=== PATIENT | male | born 1950 | race Caucasian/White ===

== ENCOUNTER → 2017-07-26 | Outpatient (CLI) | payer OTHER ==
[~2017-07-26] VITALS: Ht 175.3 cm; Wt 77.1 kg
[~2017-07-26] MED LIST: AMARYL4 MG PO; ASPIRIN325 PO; B-100 COMPLEX1 EAC1 PO; BACTRIM DS TAB1 EACH PO; BENADRYL25 MG PO; BYSTOLIC 5 MG5 M1 PO; BYSTOLIC10 MG PO; CATAPRES PO; CATAPRES-TTS 10.1 MG TD; CATAPRES0.2 MG PO; CELEBREX 200 M200 MG OR; CELEBREX 200 M200 MG PO; CLEOCIN HCL300 MG PO; CLONIDINE HCL0.2 M2 OR; CLONIDINE0.1 PO; CLOPIDOGREL75 MG PO; COUMADIN 4 MG TA4 M1; CYCLOBENZAPRINE10 MG PO; DILAUDID 4 MG TA4 M1 PO; EFFIENT10 MG PO; FLEXERIL PO; GLUCOPHAGE XR500 MG PO; GLUCOPHAGE500 MG PO; GLUMETZA500 OR; IBUPROFEN 200200 M1 PO; IRON159 MG PO; KAPVAY0.1 MG PO; KEFLEX500 MG PO; LIPITOR20 MG PO; LYRICA 50 MG50 MG PO; LYRICA 75 MG CA75 MG PO; MELOXICAM7.5 MG PO; MOBIC7.5 MG PO; MS CONTIN15 MG PO; MS CONTIN30 MG PO; MULTIVITAMINS PO; MUPIROCIN22 GM TOP; NEPHROCAPS SOFT1 CAP PO; NEURONTIN 300300 M1 PO; NITROGLYCERIN0.4 MG SUBLING; OXYCODONE HCL20 M1 PO; OXYCONTIN10 M1 PO; OXYCONTIN10 MG PO; OXYCONTIN20 M1 PO; OXYCONTIN30 MG PO; OXYCONTIN40 MG PO; PAIN & FEVER325 MG PO; PERCOCET 10-321 EACH OR; PERCOCET 10-321 EACH PO; PERCOCET 10-651 EACH PO; PERCOCET PO; PLAVIX 75 MG TA75 MG PO; QUINAPRIL 20 MG20 MG PO; SENOKOT-S1 TA1 PO; TOPROL XL50 MG OR
--- NOTE | ~2017-07-26 | HPC ---
[facility] [place] [address] PAIN MANAGEMENT CONSULTATION Name: SHERYL VALLADARES V Room #: REG [facility] Hansel.#: [id number] Admission: 07/26/17 Attend Phys: Chavez Berrios MD Discharge: Date of : 54 Report #: [id number] THIS REPORT FOR: //name// CC: Marcus Berrios DATE OF SERVICE: 07/26/2017 Followup visit for chronic intractable back pain with radiculopathy, history of chronic opioid use, osteoarthritis right hip. This is a followup visit for the patient, who came to my clinic at the request of Dr. Durham for me to assume his high-dose opioid therapy. When he presented to my office, he was receiving 100 mg of oxycodone with a combination of OxyContin 10 mg b.i.d. and oxycodone immediate release 20 mg 4 times daily. We had a lengthy discussion about his medications, the CDC guidelines, his morphine milligram equivalency of 150 mg, and our plan to reduce his dose further over the course of the next few months. He had already made substantial adjustment down from 240 morphine milligram equivalents. He reports today that he is under substantial stress. 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 His pain is 5/10 with the medication and is exacerbated by standing. He climbs ladders at work and he was cautioned. The patient has high blood pressure, heart disease, osteoarthritis and history of frequent headaches. He reports substantial stress, anxiety and depression at times. All medications were reviewed and reconciled today. He is out of medication. I am seeing at [facility] due to an inability to make an appointment at the clinic at [facility] in a timely fashion. PHYSICAL EXAMINATION: His affect is a bit depressed. He is able to move independently from sitting to standing position and walks with a stable gait. He is not a fall risk. His blood pressure is 139/49, his heart rate 57, respirations 14, BMI is 25.1. He has pain across his low back with forward flexion and extension. There is positive straight leg raising bilaterally into both legs involving the L5 and S1 distribution, worse on the left. He has severe right hip pain with hip internal and external rotation. IMPRESSION: 1. Chronic intractable pain related to post-laminectomy syndrome with [facility] [address] [place] [address] PAIN MANAGEMENT CONSULTATION Name: SHERYL VALLADARES V Room #: REG [facility]#: [id number] Admission: 07/26/17 Attend Phys: Chavez Berrios MD Discharge: Date of : 54 Report #: [id number] radiculopathy, the patient has majority of pain bilaterally in the lower extremities. 2. Osteoarthritis, status post left hip replacement and now with severe pain in the right hip with pending THR, which cannot be scheduled due to social issues. 3. History of complex regional pain syndrome. 4. Chronic high-dose opioid use. PLAN: 1. Long discussion again today about opioid use with the CDC guideline. I will provide him with 1 month and I am performing a buccal drug test today under terms of our written agreement. 2. Consider epidural steroid injection under fluoroscopic guidance for radicular pain to help us reduce his opioid dependence. 3. Long discussion today about spinal cord stimulation. He had a trial over 12 years ago. This therapy has changed dramatically and I think he is a good candidate for that with both the diagnosis of post-laminectomy syndrome with radiculopathy as well as complex regional pain syndrome. 4. Follow up in the Pain Clinic for epidural injection in 1 week and I will follow up for medication management either here or [facility] depending on convenience for patient. By: [id number] Chavez Berrios MD /nt
[2017-07-26 08:32] VITALS: BP 139/49
== END ==
LOC: PAIN 05:33
DX: M16.11 Unilateral primary osteoarthritis, right hip (principal); F11.20 Opioid dependence, uncomplicated

== ENCOUNTER → 2017-08-16 | Outpatient (CLI) | payer OTHER ==
[~2017-08-16] VITALS: Ht 175.3 cm; Wt 76.7 kg
[~2017-08-16] MED LIST changes: +EMBEDA ER 80-31 EACH PO; +OXYCODONE-ACET1 EAC2 PO; +XTAMPZA ER27 MG PO
--- NOTE | ~2017-08-16 | HPC ---
[facility] [address] [place] [address] PAIN MANAGEMENT CONSULTATION Name: SHERYL VALLADARES V Room #: REG [facility] Hansel.#: [id number] Admission: 08/16/17 Attend Phys: Chavez Berrios MD Discharge: Date of : 54 Report #: [id number] THIS REPORT FOR: //name// CC: Marcus Berrios DATE OF SERVICE: 08/16/2017 Followup visit for management of high risk medications. The patient returns to pain clinic today for renewal of his oxycodone. He is at very high doses with an MME in the range of 135. This is a reduction from his chronic use. He previously was at 240 MME and has made a good headway in reducing his reliance on such high doses of opioids. Because of his use of oxycodone at such high levels, I have elected to place him on Xtampza, which is abuse deterrence. For all patients above 90 MME, we have taken at our clinic as an important step to prevent any diversion of these higher doses into the community. I have discussed the CDC guidelines and our opioid agreement in detail with the patient today. His PQRS shows he has a history of osteoarthritis with diffuse aches and pains, particularly throughout his right hip. He has low back pain with radiculopathy as well. He is on medication for blood pressures noted provided by his primary care physician. He has completed an opioid risk tool in our clinic and has a functional assessment tool of 33. He is at low risk for addiction and is using his medications appropriately for treatment of chronic intractable pain. PHYSICAL EXAMINATION: His affect is pleasant. Blood pressure 128/55, heart rate 61, respirations 14. He moves from sitting to standing position, walks with a slow antalgic gait. He has tenderness across his low back. He has pain with forward flexion and extension. There is also noted pain with internal and external rotation of the right hip consistent with his osteoarthritis. IMPRESSION: 1. Chronic intractable pain with osteoarthritis, right hip. 2. Lumbar spondylosis with radiculopathy. 3. Management of high risk medication. Medications were renewed as follows, Xtampza 27 mg b.i.d., oxycodone 10/325 one tablet 3 times daily. This will be an opioid equivalent of 135 MME. I plan to [address] [address] PAIN MANAGEMENT CONSULTATION Name: SHERYL VALLADARES V Room #: REG [facility] Bonilla#: [id number] Admission: 08/16/17 Attend Phys: Chavez Berrios MD Discharge: Date of : 54 Report #: [id number] see him back in the clinic in 2 months. Hopefully, the Xtampza will be cost effective for him. By: [id number] Chavez Berrios MD /nt
[2017-08-16 13:31] VITALS: BP 128/55
== END ==
LOC: PAIN 07:12
DX: M16.11 Unilateral primary osteoarthritis, right hip (principal); G89.29 Other chronic pain; M47.26 Other spondylosis with radiculopathy, lumbar region; Z79.899 Other long term (current) drug therapy

== ENCOUNTER → 2017-09-13 | Outpatient (CLI) | payer OTHER ==
[~2017-09-13] VITALS: Ht 175.3 cm; Wt 77.5 kg
[~2017-09-13] MED LIST changes: +BYSTOLIC20 MG PO; +EMBEDA PO; +LYRICA150 MG PO
--- NOTE | ~2017-09-13 | HPC ---
[facility] [address] [place] [address] PAIN MANAGEMENT CONSULTATION Name: SHERYL VALLADARES V Room #: REG ESTELA Crystal#: [id number] Admission: 09/13/17 Attend Phys: Chavez Berrios MD Discharge: Date of : 54 Report #: [id number] THIS REPORT FOR: //name// CC: Olvin Berrios DATE OF SERVICE: 09/13/2017 Followup visit for chronic pain management. The patient is here today in followup and the primary purpose is to prepare him with medication up to his surgery, to discuss a plan for perioperative acute on chronic pain management and also discuss postoperative followup. He is concerned about pain management in the postoperative period. I have told him that my note from today will be on the record at [facility] and can serve as a reference and guide to Dr. Pelaez and the hospitalists will be helping manage his postoperative condition. It is also nice to know that anesthesia techniques have advanced and perioperative pain management is a focus of perioperative anesthesia. We reviewed his three primary pain generators. He has chronic low back pain with spondylosis and radiculopathy. He suffers from severe osteoarthritis of the right hip and has surgery planned for 09/24 to replace that hip. He suffers from diabetic peripheral neuropathy with a burning sensation in both feet and has chronic pain in the left foot and leg following a severe traumatic injury with pinning of the left ankle following which he suffered complex regional pain syndrome, which is smoldered long for many years. He has only recently returned to my practice coming in to me on high dose opioids. His morphine milligram equivalent dose was 240 at one point. We have been able to moderate that dose and he will come to surgery on 100 mg of Embeda, an abuse deterrent once a day morphine along with oxycodone 10-20 mg 3 times daily, not to exceed 60 mg a day of oxycodone for breakthrough. This equates to a morphine milligram equivalency of 190, still extremely high. Our plan is to continue with these doses through surgery to help manage his perioperative pain and then to aggressively taper his medication when surgery is through since one of his primary pain generators should hopefully be better. He is on board with that plan. PQRS is reviewed today. He is not a fall risk. He ____ or will try not to smoke in anticipation of surgery, but has been smoking one-half packs per day. He is treated for hypertension. His BMI is stable at 25.2. PHYSICAL EXAMINATION: [facility] [address] [place] [address] PAIN MANAGEMENT CONSULTATION Name: SHERYL VALLADARES V Room #: REG [facility]#: [id number] Admission: 09/13/17 Attend Phys: Chavez Berrios MD Discharge: Date of : 54 Report #: [id number] GENERAL: He is pleasant, alert and oriented without signs of overmedication, depression or anxiety. HEENT: Shows that he is edentulous. His pupils are small, but reactive. CHEST: Clear. CARDIAC: Rhythm is regular. VITAL SIGNS: His blood pressure 153/53, heart rate 56, respirations 14 and O2 sat 97%. GAIT: He has an antalgic gait. IMPRESSION: 1. Osteoarthritis, right hip with anticipated right THR. 2. Chronic left foot pain with history of CRPS, chronic smoldering neuropathic pain. 3. Diabetic neuropathy. 4. Chronic low back pain with spondylosis and radiculopathy. 5. Management of high risk medication. RECOMMENDATIONS: 1. Continue Xtampza at 100 mg daily through surgery and after. He will take this is as a baseline medication. He is instructed to bring his own medication to the hospital since it is unlikely that they will have it. He is to take one tablet each morning. 2. Continue with breakthrough oxycodone 1-2 tablets up to 3 times a day, not to exceed 60 mg per day or 6 tablets. 3. In the perioperative period, he can be given intravenous morphine 2-4 mg q. 2-3 hours as necessary or he may be a good candidate for a [employer] up to 20 mg in 4 hours with some additional nurse applied boluses 1-2 mg every 2 hours if that is unsatisfactory. 4. Postoperative intravenous supplementary pain medication can be discontinued within 48-72 hours and he can resume his oxycodone and baseline medications for discharge. 5. Perioperative nonopioid co-analgesics including his routine dose of Lyrica 150 mg b.i.d. should be continued through surgery and at discharge. 6. I would like to see him back in the pain clinic in one month. That will be about 2 weeks following his surgery and will make further plans on where to go from there. I have told him that my note just dictated will be on the chart for directions to Dr. Pelaez and although I will be out of town, Rachel Luz APN will be available in the clinic if there are questions. <ELECTRONICALLY SIGNED> By: Chavez Berrios MD 09/17/17 1230 [id number] [id number] Chavez Berrios MD /nt
[2017-09-13 09:41] VITALS: BP 153/53
== END ==
LOC: PAIN 08-30 08:47
DX: M47.26 Other spondylosis with radiculopathy, lumbar region (principal); M16.11 Unilateral primary osteoarthritis, right hip; E11.40 Type 2 diabetes mellitus with diabetic neuropathy, unspecified; G89.29 Other chronic pain; M54.5 Low back pain; M79.672 Pain in left foot; Z79.899 Other long term (current) drug therapy

== ENCOUNTER → 2017-10-11 | Outpatient (CLI) | payer OTHER ==
[~2017-10-11] VITALS: Ht 175.3 cm; Wt 75.8 kg
--- NOTE | ~2017-10-11 | HPC ---
[facility] [place] [address] PAIN MANAGEMENT CONSULTATION Name: SHERYL VALLADARES V Room #: REG ESTELA Hansel.#: [id number] Admission: 10/11/17 Attend Phys: Chavez Berrios MD Discharge: Date of : 54 Report #: [id number] THIS REPORT FOR: //name// CC: RAIZA Berrios DATE OF SERVICE: 10/11/2017 Followup visit for chronic pain. The patient returns to pain clinic now with 3 weeks out from his hip replacement. His hip is feeling better. I had increased his Embeda slightly from 80-100 for the postoperative period and he had some breakthrough Percocet, which he has been taking aggressively up to 2 tablets 3 times a day. He has low pain threat tolerance and some hyperalgesia related to long-term use of opioids. His MME is above 150. I have agreed to provide these medications only as long as we get him through his surgical. I am agreeable to continue them for 1 more month and will begin to taper. We talked about the importance of exercise and recovery and for the best outcome for his hip replacement. He is somewhat limited in his ability to perform therapy because of chronic back pain with radiation into the leg with radiculopathy. He has had 2 previous lumbar surgery with fusion. I have offered an epidural injection for possible pain relief is not able to perform his therapy. I am not going to increase his medication. Comorbidities include coronary artery disease with CABG x 3 in 2012. He had seizures as a child and has non-insulin dependent diabetes. He is treated for high blood pressure and high cholesterol by Dr. Sheryl López. PHYSICAL EXAMINATION: Today appears relaxed and comfortable. His blood pressure 136/42, heart rate 65, BMI is 24.7. His pain score is 6. He moves from sitting to standing position and is using a walker still with his hip replacement, now 3 weeks out. He has mild tenderness across his low back. The hip is in good alignment and there has been no instability. Incision has healed nicely. IMPRESSION: 1. Chronic intractable pain with osteoarthritis of the right hip, now status post total hip replacement. 2. History of chronic regional pain syndrome with smoldering neuropathic pain. 3. Diabetic neuropathy. 4. Post-laminectomy syndrome with chronic spondylosis and radiculopathy, which [address] [address] PAIN MANAGEMENT CONSULTATION Name: SHERYL VALLADARES V [id number] Admission: 10/11/17 Attend Phys: Chavez Berrios MD Discharge: Date of : 54 Report #: [id number] has worsened some during his recovery and limitations in mobility with hip replacement. 5. Management of high risk medications at [facility] doses of greater than 150 MME including Embeda 100 mg once daily and oxycodone mg 10/325 mg 1-2 tablets up to every 4 hours. PLAN: One more month at current dosing of his medication and then will taper. Followup visit planned in 1 month. By: [id number] Chavez Berrios MD /minnie
[2017-10-11 09:54] VITALS: BP 136/42
== END ==
LOC: PAIN 06:15
DX: M16.11 Unilateral primary osteoarthritis, right hip (principal); E11.40 Type 2 diabetes mellitus with diabetic neuropathy, unspecified; G89.4 Chronic pain syndrome; Z79.891 Long term (current) use of opiate analgesic; Z79.899 Other long term (current) drug therapy

== ENCOUNTER → 2017-11-08 | Outpatient (CLI) | payer OTHER ==
[~2017-11-08] VITALS: Ht 175.3 cm; Wt 76.9 kg
--- NOTE | ~2017-11-08 | HPC ---
[facility] [address] [place] [address] PAIN MANAGEMENT CONSULTATION Name: SHERYL VALLADARES V Room #: REG ESTELA Hansel.#: [id number] Admission: 11/08/17 Attend Phys: Chavez Berrios MD Discharge: Date of : 54 Report #: [id number] THIS REPORT FOR: //name// CC: Marcus Berrios DATE OF SERVICE: 11/08/2017 Followup visit for chronic pain management. The patient returns to pain clinic today for renewal of medication. As discussed on 10/11/2017, I will begin tapering his medication. He is concerned that his pain will return with a vengeance and I have reassured him that we will be gradual in our tapering. His morphine milligram equivalency dose is quite high. I feel that we need to reduce this medication while we can. He is doing well with his hip replacement. He has a little concern about some of the scar tissue that is forming, but I have felt this and reassured him that it appears to be normal and should not pose a long-term problem. I talked to him for about 15 minutes additional to our normal visit today for a 25-minute followup visit. He is concerned about his , Yuki. She has a longstanding problem with lymphoma and has recently had a recurrence of issues with cancer. She is following at with Dr. Chavez Ang. She is not on hospice, but clearly I feel she would benefit from the excellent support that could be provided through a palliative care team. has a wonderful palliative care program and I believe that they have some outreach programs into the clinics that are outside of the main hospital. I have placed a text to one of the nurses in the palliative care program at and also to Dr. Ang who was kind enough to call me back. This is care for the patient's not the patient, but it directly impacts his wellness as well. I felt it important that we reached out to provide this palliative care support. We talked about advanced directives and durable power of corporate attorney. These are all issues that can be as discussed with his palliative care team when the consult is initiated. PHYSICAL EXAMINATION: Today, he is 5 feet 9 inches, BMI of 25. His blood pressure 136/56, heart rate 66. Pain intensity is 6. He does not appear to be a fall risk, and moves easily from sitting to standing position. His gait has improved with the new hip. Examination of the scar along his hip reveals a small amount of forming scar tissue, which I think is benign. There is no redness or inflammation suggesting infection. He is not on any blood thinners at this time. He is treated for hypertension. He is on an opioid agreement that has been on our chart and reviewed the importance of safeguarding medication. He is grateful for the pain relief that he gets and has no significant side effects. He is much more functional and able to get around better with pain medication and is concerned that we may pull [address] [address] PAIN MANAGEMENT CONSULTATION Name: SHERYL VALLADARES V Room #: REG ESTELA Crystal#: [id number] Admission: 11/08/17 Attend Phys: Chavez Berrios MD Discharge: Date of : 54 Report #: [id number] this from him. He is at low risk for addiction and we will make sure that we monitor him carefully. IMPRESSION: Chronic intractable pain syndrome with osteoarthritis, status post hip replacement, chronic regional pain syndrome and smoldering neuropathic pain, diabetic neuropathy and post-laminectomy syndrome with radiculopathy. Medications renewed and I have kept his Embeda at 100 mg daily and dropped his oxycodone from 6 to 5 tablets per . I will see him back in 1 month or 2 months. In 4 weeks, I have given him an additional prescription for oxycodone; however, we will not continue at 5 a day, we will drop to 4. This should drop his oxycodone then over next 2 months from 60 to 40 mg. We will continue these efforts. By: [id number] Chavez Berrios MD /nt
[2017-11-08 10:09] VITALS: BP 136/56
== END ==
LOC: PAIN 07:26
DX: M16.12 Unilateral primary osteoarthritis, left hip (principal); E11.40 Type 2 diabetes mellitus with diabetic neuropathy, unspecified; M54.16 Radiculopathy, lumbar region; G89.4 Chronic pain syndrome; Z79.899 Other long term (current) drug therapy

== ENCOUNTER → 2018-01-03 | Outpatient (CLI) | payer OTHER ==
[~2018-01-03] VITALS: Ht 175.3 cm; Wt 75.4 kg
--- NOTE | ~2018-01-03 | HPC ---
[facility] [place] [address] PAIN MANAGEMENT CONSULTATION Name: SHERYL VALLADARES Room #: REG [facility].#: [id number] Admission: 01/03/18 Attend Phys: Chavez Berrios MD Discharge: Date of : 54 Report #: [id number] THIS REPORT FOR: //name// CC: CARY Berrios DATE OF SERVICE: 01/03/2018 REASON FOR VISIT: Followup visit for chronic pain. HISTORY OF PRESENT ILLNESS: The patient returns to pain clinic today for renewal of his pain medication. Under terms of our written opioid agreement, I provided him with Embeda ER, the abuse deterrent morphine at 100 mg once daily and oxycodone 10/325 four daily for breakthrough pain. He is doing reasonably well with these medications. 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 She fell the other day, pulling down a dresser on top of her and he had to pull that off of her. This aggravated his back and also his hip. It should be noted that his hip was replaced on 09/24/2017. He is doing better from that standpoint. Much of his pain prior to the replacement was in his hip. He has made it through recovery and is doing rehab and is gaining strength throughout the leg. PHYSICAL EXAMINATION/PQRS: Blood pressure is 131/39, heart rate 63, respirations 20. His BMI is 24.9. He is pleasant, alert and oriented with no signs of dementia or anxiety. He was pleasant and seemed to be managing difficult task of caring for his with dafne. He is able to move from sitting to standing position. His gait is mildly antalgic mostly due to the healing of his hip. He has mild tenderness there. Chest was clear and his cardiac rhythm was regular. He has diffuse osteoarthritis in the shoulders. Hips as noted. He is not a fall risk as appears, he is no longer using his cane. He has no blood thinners, but history of hypertension and coronary artery disease for which he is under treatment. He is on an opioid agreement signed by out clinic and resigned in August of this year. He has completed an opioid risk tool. He denies use of tobacco, drinks alcohol only during the [employer] games. IMPRESSION: 1. Chronic intractable back pain and cervicalgia. 2. Osteoarthritis, status post hip replacement. 3. Complex regional pain syndrome and neuropathic pains with diabetic [facility] [address] [place] [address] PAIN MANAGEMENT CONSULTATION Name: SHERYL VALLADARES Room #: REG [facility] HanselErin#: [id number] Admission: 01/03/18 Attend Phys: Chavez Berrios MD Discharge: Date of : 54 Report #: [id number] neuropathy and post-laminectomy syndrome with radiculopathy. PLAN: I have renewed his medications in terms of our agreement and plan to see him back in the pain clinic at 3-month intervals. He will safeguard his medications carefully. <ELECTRONICALLY SIGNED> By: Chavez Berrios MD 01/04/18 1312 [id number] Chavez Berrios MD /nt
[2018-01-03 10:09] VITALS: BP 141/39
== END ==
LOC: PAIN 07:08
DX: M54.16 Radiculopathy, lumbar region (principal); M54.2 Cervicalgia; G89.4 Chronic pain syndrome; M19.90 Unspecified osteoarthritis, unspecified site; M96.1 Postlaminectomy syndrome, not elsewhere classified; E11.40 Type 2 diabetes mellitus with diabetic neuropathy, unspecified; Z96.641 Presence of right artificial hip joint; Z79.899 Other long term (current) drug therapy

== ENCOUNTER → 2018-03-06 | Outpatient (CLI) | payer OTHER ==
[~2018-03-06] VITALS: Ht 175.3 cm; Wt 73.8 kg
--- NOTE | ~2018-03-06 | HPC ---
[facility] [place] [address] PAIN MANAGEMENT CONSULTATION Name: SHERYL VALLADARES Room #: [facility] [id number] Admission: 03/06/18 Attend Phys: Jayne Roman MD Discharge: Date of : 54 Report #: [id number] THIS REPORT FOR: //name// CC: Sheryl Roman DATE OF SERVICE: 03/06/2018 CHIEF COMPLAINT: Would like to have the medications renewed. My is not doing very well. FOLLOWUP HISTORY: The patient is a 68-year-old gentleman, who has been followed in the pain clinic because of chronic pain involving his back and neck. He finds that his current medication regimen is pretty good. He feels that the Percocet and morphine are helpful. As you may recall, his is in hospice. She has a history of breast cancer, stage 4 as well as other problems. He states that she is in hospice at this juncture. He is experiencing pain in his lower back with pain that radiates down into his feet. CURRENT MEDICATIONS: The patient is on hydrocodone 10/325 one p.o. q.4-6 hours p.r.n., morphine 100 mg, Embeda, aspirin 325 mg, Lyrica 150 mg b.i.d., Bystolic 20 mg, nitroglycerin 0.4 mg p.r.n., metformin 500 mg b.i.d., Lipitor 20 mg at bedtime, Amaryl 2 mg daily, and Accupril 20 mg. ALLERGIES: THE PATIENT IS ALLERGIC TO DILAUDID AND PREDNISONE. PAIN CLINIC ASSESSMENT AND PQRS: 1. Osteoarthritis. The patient has bilateral shoulder and hip pain, has had hip replacement. The patient has not been treated for rheumatoid arthritis. 2. Pain intensity is 3/10. 3. Fall risk. The patient has not fallen in the last 3 months. 4. Blood thinner. The patient is not on a blood thinning medication. 5. Hypertension. The patient is being treated for hypertension. 6. Opioid. The patient receives his medications from the pain clinic on a regular basis. 7. Risk assessment tool, low for opioid use. 8. Functional assessment tool, . 9. Recreational drug use. The patient denies use of recreational drugs. 10. Tobacco: The patient smokes on occasion. We discussed the benefits of smoking cessation with the patient. 11. Alcohol: The patient denies use of alcoholic beverages. PHYSICAL EXAMINATION: GENERAL: The patient is a well-developed, well-nourished white male. He appears his stated age. He is alert and oriented x 3. His affect is [facility] [address] [place] [address] PAIN MANAGEMENT CONSULTATION Name: SHERYL VALLADARES Room #: REG ESTELA Crystal#: [id number] Admission: 03/06/18 Attend Phys: Jayne Roman MD Discharge: Date of : 54 Report #: [id number]. Speech is fluent. Height is 5 feet 9 inches, weight is 162 pounds, and BMI is 24. VITAL SIGNS: Blood pressure is 144/58, pulse is 60, respiratory rate is 18, and room air saturation is 95%. HEENT: Normocephalic, atraumatic. Extraocular eye muscles intact. Sclerae nonicteric. Mucous membranes are moist. NECK: Without adenopathy or JVD. LUNGS: Clear to auscultation. HEART: Regular rate. ABDOMEN: Nontender. EXTREMITIES: Upper extremity muscle strength is judged to be 5/5 for the major muscle groups in the upper extremity. The patient is without significant scoliosis, kyphosis, or lordosis. He has complained of pain and discomfort in the lower portion of his back with pain that radiates down into his legs. Also, has pain in his hip. RECOMMENDATIONS: We have discussed treatment options with the patient. We will continue with his current medications. Risks and benefits of opioid medications were again described. Possibility of dependence as well as lack of improvement secondary to tolerance were discussed. The patient feels that his medications are working reasonably well. We would like to continue with their use and they have been renewed. He has been given a script for Percocet 10/325, 120 tablets, Embeda ____ has been given a 2-month supply. We would like to thank you for letting us to participate in his care. We hope he continues to improve. By: [id number] Jayne Roman MD /[facility]
[2018-03-06 14:10] VITALS: BP 144/58
== END ==
LOC: PAIN 10:57
DX: M19.90 Unspecified osteoarthritis, unspecified site (principal); I10 Essential (primary) hypertension; F11.21 Opioid dependence, in remission; F17.200 Nicotine dependence, unspecified, uncomplicated; F19.90 Other psychoactive substance use, unspecified, uncomplicated; Z79.899 Other long term (current) drug therapy; Z91.81 History of falling

== ENCOUNTER → 2018-04-30 | Outpatient (CLI) | payer OTHER ==
[~2018-04-30] VITALS: Ht 175.3 cm; Wt 75.1 kg
[2018-04-30 09:34] VITALS: BP 143/66
--- NOTE | 2018-04-30 09:56 | NUR ---
Pain Clinic Assessment: 1. History of Osteoarthritis: CIRILO SHOULDERS CIRILO HIPS History of Rheumatoid Arthritis: none 2. Height: 5 ft. 9 in. 175.3 cm. Weight: 165.6 lb. oz. 75.116 kg. Patient's BMI: 24.4 3. Vital Signs: BP: 143/66 Pulse: 60 Resp: 16 Temp: 02 Sat: 98 ECG Mon: 4. Pain Intensity: 3 5. Fall Risk: Dizziness: N Needs help standing or walking: N Fallen in the last 3 months: N Fall risk comments: 6. Patient on Blood Thinner: None 7. History of Hypertension: Y 8. Opioid Therapy greater than 6 weeks: Y Opiate Contract Signed: 09/13/17 9. Risk Assessment Tool Provided: Opioid Risk Tool 10. Functional Assessment Tool: 43 11. Recreational Drug Use: Never Drug Type: Tobacco Use: Current Every Day Smoker Tobacco Type: Cigarettes Amount or Packs/day: 0.5 How Many Years: 50 Alcohol Use: No Frequency: Quant:
--- NOTE | 2018-05-01 07:37 | HPC ---
[facility] [address] [place] [address] PAIN MANAGEMENT CONSULTATION Name: SHERYL VALLADARES Room #: REG CL MTatiana.#: [id number] Admission: 04/30/18 Attend Phys: Chelsie Luz Discharge: Date of : 54 Report #: [id number] THIS REPORT FOR: //name// CC: Chelsie Proctor [place] DATE OF SERVICE: 04/30/2018 CHIEF COMPLAINT: Chronic low back pain and hip pain, status post hip replacement. HISTORY OF PRESENT ILLNESS: This is a very pleasant 68-year-old gentleman who returned to the pain clinic today for a refill of his current medication. He tells me that they are helping him with his daily life. He tells me that his is in hospice, but she is at home right now, so he is caring for her. Pain in his lower back and his feet, hips are doing better since his hip replacement. He tells me his pain score is 3/10 today, worse with moving his and walking. Medications and heat are very helpful. He denies any constipation. He did need to take more of his short-acting pain pills, his oxycodone, why we are authorizing his Embeda. Therefore, he is out of his oxycodone earlier since it took a week and half to get his Embeda approved in March. CURRENT ALLERGIES: PREDNISONE AND HYDROMORPHONE. CURRENT MEDICATIONS: Oxycodone 10/325 every 6 hours p.r.n. Embeda ER 10/4 daily, aspirin 325 mg daily, Lyrica 150 mg b.i.d., Bystolic 20 mg daily, nitro as needed, Glucophage 500 mg b.i.d., atorvastatin 20 mg at bedtime, Amaryl 4 mg daily. Accupril 20 mg at bedtime. PQRS: 1. He has osteoarthritis in his shoulders and hips, which have been replaced. He is not being treated for rheumatoid arthritis. 2. Height 5 feet 9 inches, weight is 165, BMI is 24. 3. Vital signs: Blood pressure 143/66, pulse is 60, respirations 16, oxygen sat is 98%. 4. Pain score 3/10. 5. Fall risk. Denies dizziness, does not need help walking or standing. Has not fallen in the last 3 months. 6. The patient does not take any blood thinners. 7. He has a history of hypertension, on medications. 8. Opiate therapy is greater than 6 weeks, therefore, an opioid signed contact is on the chart. 9. Risk assessment tool is low. His functional assessment is 43/70. 10. Recreational drug use, he denies. He is a current smoker, about a half a pack a day. Denies any alcohol use. We did check the prescription monitoring system. The patient is filling appropriately from our physicians for his [address] [address] PAIN MANAGEMENT CONSULTATION Name: SHERYL VALLADARES [id number] Admission: 04/30/18 Attend Phys: Chelsie Luz Discharge: Date of : 54 Report #: [id number]. He does have a recent drug screen on his chart that is appropriate with his medications. PHYSICAL EXAMINATION: GENERAL: This is a very pleasant, well-developed, well-nourished white male, who appears his stated age. He is alert and orientated, and his affect is appropriate. HEENT: Normocephalic, atraumatic. Extraocular eye muscles are intact. Sclerae non-eccentric. Mucous membranes are moist. EXTREMITIES: Upper extremity strength judged to be 5/5 for major muscle groups in his upper extremities. The patient was without scoliosis, kyphosis or lordosis. He does walk with a slightly antalgic gait. He complains of pain in his lower back that radiates into his legs. Lower extremity muscle strength is judged to be 5/5 for major muscle groups. We reviewed the fact that opiate medications are being used to provide analgesia adequate to support activities of daily living, not attempting to achieve a specific pain score on the 0-10 Visual Analog Scale. The current opiate medications are providing sufficient analgesia to allow the patient to participate in activities of daily living. The patient is not exhibiting any aberrant behavior suggestive of drug diversion. The patient is not having any adverse reactions to medications. The patient is not suffering from daytime somnolence or mental acuity changes. The patient is managing opiate-induced constipation with appropriate [id number]-[id number] agents and dietary considerations. The patient was counseled on concern for caution with operating a motor vehicle while using opiate medications. A physical exam was performed and the patient's functional status was evaluated. All patients with back pain were advised against the bed rest greater than 4 days and were advised to return to normal activities. Pain score assessment was noted and the treatment plan was reviewed with the patient. All current medications, both prescribed and OTC were reviewed and reconciled on the electronic medical record. Tobacco screening was accomplished and smoking cessation was advised when indicated. BMI was noted and diet/exercise modification was recommended for all patients following outside normal parameters. I reviewed with the patient today their responsibilities to safeguard prescription medications, reviewed their responsibility to utilize medications only as prescribed by the physician. They are to seek and receive pain medications only from 1 physician group ( [facility]). They are to use 1 pharmacy and keep the clinic informed if they change pharmacies. Their responsibilities include making followup visits in a timely fashion and to avoid abrupt discontinuation of medication usage. Their responsibilities further include bringing their medications (bottles from the pharmacy with residual pills) to the visit for possible confirmation of pill counts and the patient [facility] [address] [place] [address] PAIN MANAGEMENT CONSULTATION Name: SHERYL VALLADARES Room #: REG [facility]UM[facility]atiana.#: [id number] Admission: 04/30/18 Attend Phys: Chelsie Luz Discharge: Date of : 54 Report #: [id number] understands it is their responsibility to submit to random drug screens to ensure both that the medications prescribed are present, and that no other controlled substances are present. All prescriptions provided today were generated electronically. RECOMMENDATIONS: 1. We discussed treatment options with the patient today. We will continue his current medications. He was encouraged to try to decrease his oxycodone use since currently they are out of sync with his Embeda. His Embeda was improved for 6 months. The patient did have to pay out of pocket $800 for that medication per the insurance company [employer]. She told me verbally on the phone that she would call Lyndsey that they should be able to reinstate that money to the patient since the medication was approved. I notified the patient to talk to Lyndsey Bradford about this when he goes to fill his medications. 2. We did discuss the patient's current MME, which is 160 currently. We did discuss the CDC requirements of 90 or below. The patient knows he is above that. We discussed that we will try to decrease his Embeda use within the next few months since the patient has been recovering from his hip surgery and is doing better. He will try to decrease his short-acting medications. 3. Scripts given for Embeda 100/4 #30 to be released today and 4-week and Percocet 10/325, #120, to release today and 4 weeks. 4. The patient is seen in collaboration today with Dr. Chavez Berrios. <ELECTRONICALLY SIGNED> By: Chelsie Luz 05/01/18 0737 [id number] Chelsie Luz /nt
== END ==
LOC: PAIN 06:45
DX: M54.5 Low back pain (principal); G89.29 Other chronic pain; M25.551 Pain in right hip; M25.552 Pain in left hip; Z79.899 Other long term (current) drug therapy

== ENCOUNTER → 2018-06-27 | Outpatient (CLI) | payer OTHER ==
[~2018-06-27] VITALS: Ht 175.3 cm; Wt 76.7 kg
[2018-06-27 12:21] VITALS: BP 127/58
--- NOTE | 2018-06-27 12:27 | NUR ---
Pain Clinic Assessment: 1. History of Osteoarthritis: CIRILO SHOULDERS CIRILO HIPS History of Rheumatoid Arthritis: none 2. Height: 5 ft. 9 in. 175.3 cm. Weight: 169.0 lb. oz. 76.658 kg. Patient's BMI: 24.9 3. Vital Signs: BP: 127/58 Pulse: 61 Resp: 16 Temp: 02 Sat: 98 ECG Mon: 4. Pain Intensity: 6 5. Fall Risk: Dizziness: N Needs help standing or walking: N Fallen in the last 3 months: N Fall risk comments: 6. Patient on Blood Thinner: None 7. History of Hypertension: Y 8. Opioid Therapy greater than 6 weeks: Y Opiate Contract Signed: 09/13/17 9. Risk Assessment Tool Provided: Opioid Risk Tool 10. Functional Assessment Tool: 43 11. Recreational Drug Use: Never Drug Type: Tobacco Use: Current Every Day Smoker Tobacco Type: Cigarettes Amount or Packs/day: 0.5 How Many Years: 50 Alcohol Use: No Frequency: Quant:
--- NOTE | 2018-06-28 07:13 | HPC ---
[facility] [place] [address] PAIN MANAGEMENT CONSULTATION Name: SHERYL VALLADARES Room #: REG [facility]PITALDulce#: [id number] Admission: 06/27/18 ������������������ Attend Phys: Chelsie Luz Discharge: ������������������ Date of : 54 Report #: [id number] THIS REPORT FOR: //name// CC: Chelsie Proctor [place] DATE OF SERVICE: 06/27/2018 CHIEF COMPLAINT: Low back pain, bilateral foot pain. HISTORY OF PRESENT ILLNESS: This is a very pleasant 68-year-old gentleman who returns to the pain clinic today for refill of his medication. He had his hip replaced in September and tells me that his hip is doing great. He feels much better since he has had that done. He just complains of lower back pain and bilateral foot pain. He said he has some tingling in his left ankle, which is where he broke it in the past. He rates his pain score today is 6/10, mostly an achy, stabbing, tender pain, worse with activity, but the medications and heat are very helpful. He is caring for at home that is on hospice care. He tells me that she has been able to stay out of the hospital for a while and that lately she has been slightly improved. He would like a refill of his medications today. ALLERGIES: PREDNISONE, HYDROMORPHONE. CURRENT MEDICATION LIST: Oxycodone 10/325 up to 4 times a day, Embeda 100/4 daily, aspirin 325 mg daily, Lyrica 150 mg b.i.d., Bystolic 20 mg daily, metformin 500 mg b.i.d., Lipitor 20 mg at bedtime, Amaryl 2 mg daily and Accupril 20 mg at bedtime. PQRS: 1. He has osteoarthritis in his shoulders and his hips, which of the hips have been both replaced. He denies any rheumatoid arthritis. 2. Height is 5 feet 9 inches, weight is 169, BMI is 24.9. 3. Vital signs: 127/58, pulse is 61, respirations 16, oxygen sat is 98. 4. Pain score is 6/10. 5. Fall risk. Denies dizziness. Does not need help walking or standing. He has not fallen in the last 3 months. 6. The patient is not on any blood thinners. He does take medicines for hypertension. 7. Opioid therapy is greater than 6 weeks; therefore, an opiate signed contract is on the chart. His risk assessment tool is low and his functional assessment is 43/70. 8. The patient does not use recreational drugs. He tells me he has decreased his smoking, is down to half a pack a day. 9. Denies any alcohol use. 10. We did check the prescription monitoring system. The patient is filling [address] [address] PAIN MANAGEMENT CONSULTATION Name: SHERYL VALALDARES Room #: REG [facility]#: [id number] Admission: 06/27/18 ������������������ Attend Phys: Chelsie Luz Discharge: ������������������ Date of : 54 Report #: [id number] appropriately with his medications. He is due for his oxycodone script today. He still has about a week's left of his Embeda. We have a drug screen on the chart that is appropriate for his medications. The patient tells me he does safeguard his medicine at all time. PHYSICAL EXAMINATION: GENERAL: This is a very pleasant, well-developed, well-nourished white gentleman, who appears his stated age. He is alert and orientated. He does smell like cigarette smoke today. HEENT: Normocephalic, atraumatic. Extraocular eye muscles are intact. Mucous membranes are moist. EXTREMITIES: Upper extremity strength judged to be 5/5 in major muscle groups. The patient is without scoliosis, kyphosis or lordosis. He does walk with an antalgic gait. Complains of pain in his left ankle and his lower back today. His lower extremity strength judged to be 5/5 for major muscle groups. We reviewed the fact that opiate medications are being used to provide analgesia adequate to support activities of daily living, not attempting to achieve a specific pain score on the 0-10 Visual Analog Scale. The current opiate medications are providing sufficient analgesia to allow the patient to participate in activities of daily living. The patient is not exhibiting any aberrant behavior suggestive of drug diversion. The patient is not having any adverse reactions to medications. The patient is not suffering from daytime somnolence or mental acuity changes. The patient is managing opiate-induced constipation with appropriate cqtu-tor-behizkh agents and dietary considerations. The patient was counseled on concern for caution with operating a motor vehicle while using opiate medications. A physical exam was performed and the patient's functional status was evaluated. All patients with back pain were advised against the bed rest greater than 4 days and were advised to return to normal activities. Pain score assessment was noted and the treatment plan was reviewed with the patient. All current medications, both prescribed and OTC were reviewed and reconciled on the electronic medical record. Tobacco screening was accomplished and smoking cessation was advised when indicated. BMI was noted and diet/exercise modification was recommended for all patients following outside normal parameters. I reviewed with the patient today their responsibilities to safeguard prescription medications, reviewed their responsibility to utilize medications only as prescribed by the physician. They are to seek and receive pain medications only from 1 physician group ( [facility]). They are to use 1 pharmacy and keep the clinic informed if they change pharmacies. Their responsibilities include making followup visits in a timely fashion and to avoid abrupt discontinuation of medication usage. Their responsibilities further include bringing their medications (bottles from the pharmacy with residual [facility] [address] [place] [address] PAIN MANAGEMENT CONSULTATION Name: BLAINESHERYL ASHERNON Room #: REG CLFlores Crystal#: [id number] Admission: 06/27/18 ������������������ Attend Phys: Chelsie Luz Discharge: ������������������ Date of : 54 Report #: [id number] pills) to the visit for possible confirmation of pill counts and the patient understands it is their responsibility to submit to random drug screens to ensure both that the medications prescribed are present, and that no other controlled substances are present. All prescriptions provided today were generated electronically. IMPRESSION: 1. Chronic intractable back pain, osteoarthritis, status post hip replacements. 2. Complex regional pain syndrome. 3. Neuropathic pain with diabetic neuropathy and post-laminectomy syndrome. 4. Lumbar radiculopathy. 5. Management of high-risk medications under terms of written opioid agreement. PLAN: 1. We discussed treatment options with the patient today. He tells me he is doing quite well from his hip replacement. We had kept him at the higher dose of his Embeda of 100/4 mg per day until he was fully recovered from his hip surgery and we told him we would be decreasing him today. We will decrease his Embeda to 80/3.2 mg per day. The patient verbalizes understanding. I explained to him that we will keep his Percocet dose at 10/325 four times a day. According to the CDC guidelines, this still places him on a very high level. His MME at this current calculation would be 140. We will continue to monitor him very closely and we will decrease his medicines again when we are able after we feel that he has been stabilized for several months and is able to decrease his medications again. 2. Scripts given for today and 4-week of his Embeda 80/3.2 and Percocet 10/325, #120. The patient does not need his Lyrica prescription today since he has refills through August. The patient verbalizes understanding of this medication decrease. 3. We did talk about smoking cessation and continue to work on decreasing his cigarette smoking as he is able and reminded him that he is not to smoke in the house where his is on oxygen. He verbalizes understanding. He knows he has come a long way since his 2 packs per day to down to half a pack and he will continue to try and decrease his smoking. 4. The patient is seen with Dr. Berrios who collaborated care and will follow up with us in 2 months. ��������������������������������������������� <ELECTRONICALLY SIGNED> ���������������������������������������� By: Chelsie Luz ��������������������������������������������� 06/28/18 0713 1305 [id number] Chelsie Luz /nt
== END ==
LOC: PAIN 06:58
DX: M54.16 Radiculopathy, lumbar region (principal); G90.50 Complex regional pain syndrome I, unspecified; M96.1 Postlaminectomy syndrome, not elsewhere classified; E11.40 Type 2 diabetes mellitus with diabetic neuropathy, unspecified; M79.671 Pain in right foot; M79.672 Pain in left foot; Z79.891 Long term (current) use of opiate analgesic; Z79.899 Other long term (current) drug therapy

== ENCOUNTER → 2018-08-22 | Outpatient (CLI) | payer OTHER ==
[~2018-08-22] VITALS: Ht 175.3 cm; Wt 77.8 kg
[2018-08-22 12:52] VITALS: BP 149/68
--- NOTE | 2018-08-22 13:07 | NUR ---
Pain Clinic Assessment: 1. History of Osteoarthritis: CIRILO SHOULDERS CIRILO HIPS History of Rheumatoid Arthritis: Not Applicable 2. Height: 5 ft. 9 in. 175.3 cm. Weight: 171.6 lb. oz. 77.837 kg. Patient's BMI: 25.3 3. Vital Signs: BP: 149/68 Pulse: 60 Resp: 16 Temp: 02 Sat: 100 ECG Mon: 4. Pain Intensity: 6-7 5. Fall Risk: Dizziness: N Needs help standing or walking: N Fallen in the last 3 months: N Fall risk comments: 6. Patient on Blood Thinner: None 7. History of Hypertension: Y 8. Opioid Therapy greater than 6 weeks: Y Opiate Contract Signed: 09/13/17 9. Risk Assessment Tool Provided: Opioid Risk Tool 10. Functional Assessment Tool: 43 11. Recreational Drug Use: Never Drug Type: Tobacco Use: Current Every Day Smoker Tobacco Type: Cigarettes Amount or Packs/day: 8-10 CIGS How Many Years: Alcohol Use: No Frequency: Quant:
--- NOTE | 2018-08-26 07:15 | HPC ---
[facility] [address] [place] [address] PAIN MANAGEMENT CONSULTATION Name: BLAINESHERYL LUTZ Room #: REG [facility] Bonilla#: [id number] Admission: 08/22/18 ������������������ Attend Phys: Chelsie Luz Discharge: ������������������ Date of : 54 Report #: [id number] THIS REPORT FOR: //name// CC: Chelsie [place] DATE OF SERVICE: 08/22/2018 CHIEF COMPLAINT: Low back pain, bilateral foot pain. HISTORY OF PRESENT ILLNESS: This is a very pleasant 68-year-old gentleman who returns to the pain clinic today for a refill of his medications. He tells me overall he feels like he is doing adequate. He feels like he had experienced some withdrawal symptoms in June when we decreased his Embeda from 100 mg to 80 mg. He felt like creepy crawly feelings on his back. This has slowly gone away. He did continue his oxycodone at the same strength that he had been on for quite some time throughout this time period. The patient tells me that his pain score is a 6-7. He feels like he is having increased burning and itching in his lower extremities and his feet from his peripheral neuropathy or diabetic neuropathy that he experiences. Overall, he feels that his back pain stays the same. His pain is usually exacerbated with standing for a long time and caring for his who is on hospice. He tells me that he has no problems with the constipation or daytime sleepiness from these medications that he is on. He is wondering today if he is able to go back up on his medications for his higher level of opioids. ALLERGIES: PREDNISONE AND HYDROMORPHONE. CURRENT MEDICATIONS: Oxycodone 10/325 q.i.d. p.r.n., Embeda 8/3.2 daily, aspirin 325 mg daily, Lyrica 150 mg b.i.d., Bystolic 20 mg daily, metformin 500 mg b.i.d., atorvastatin 20 mg at bedtime, Amaryl 4 mg daily and Accupril 20 mg at bedtime. PQRS: 1. He has history of osteoarthritis in his hips and shoulders with hip replacement. Denies any rheumatoid arthritis. 2. Height is 5 feet 9 inches, weight is 171 and BMI is 25. 3. Vital signs, 149/68, pulse is 60, respirations 16 and oxygen sat is 100. 4. Pain score is 6-7. 5. Fall risk, denies dizziness, does not need help walking or standing. He has not fallen in the last 3 months. The patient is not on any blood thinners and he does take medicine for hypertension. 6. Opioid therapy is greater than 6 weeks; therefore, an opioid signed contract is on the chart. His risk assessment tool is low. His functional assessment is 43/70. 7. Recreational drug use, he denies. He continues to smoke 8-[address] cigarettes [address] [address] PAIN MANAGEMENT CONSULTATION Name: SHERYL VALLADARES Room #: REG [facility]ELA Crystal#: [id number] Admission: 08/22/18 ������������������ Attend Phys: Chelsie Luz Discharge: ������������������ Date of : 54 Report #: [id number] day and does not drink alcohol. We did check the prescription monitoring system. The patient is filling appropriately from Dr. Chavez Berrios and is due soon for his medications. There is a recent drug screen on the chart as well. He tells me he does safeguard his medications. PHYSICAL EXAMINATION: GENERAL: This is a very pleasant, well-developed, well-nourished gentleman, who appears his stated age, placing his current pain score today at 6-7. He is alert and orientated. HEENT: Normocephalic, atraumatic. Extraocular eye muscles are intact. Mucous membranes are moist. MUSCULOSKELETAL: Upper extremity strength judged to be 5/5 in all major muscle groups. The patient is without significant scoliosis, kyphosis or lordosis. He does walk with a slightly antalgic gait. He complains of itching and burning from his knees to his feet when increasing of his neuropathy. No swelling noted in his lower extremities. There are scratches with open lesions on his left deluna. His lower extremity strength judged to be 5/5 for his major muscle groups. Muscle tone is symmetrical. We reviewed the fact that opiate medications are being used to provide analgesia adequate to support activities of daily living, not attempting to achieve a specific pain score on the 0-10 Visual Analog Scale. The current opiate medications are providing sufficient analgesia to allow the patient to participate in activities of daily living. The patient is not exhibiting any aberrant behavior suggestive of drug diversion. The patient is not having any adverse reactions to medications. The patient is not suffering from daytime somnolence or mental acuity changes. The patient is managing opiate-induced constipation with appropriate biwj-yao-zjwfdni agents and dietary considerations. The patient was counseled on concern for caution with operating a motor vehicle while using opiate medications. A physical exam was performed and the patient's functional status was evaluated. All patients with back pain were advised against the bed rest greater than 4 days and were advised to return to normal activities. Pain score assessment was noted and the treatment plan was reviewed with the patient. All current medications, both prescribed and OTC were reviewed and reconciled on the electronic medical record. Tobacco screening was accomplished and smoking cessation was advised when indicated. BMI was noted and diet/exercise modification was recommended for all patients following outside normal parameters. I reviewed with the patient today their responsibilities to safeguard prescription medications, reviewed their responsibility to utilize medications only as prescribed by the physician. They are to seek and receive pain [facility] [address] [place] [address] PAIN MANAGEMENT CONSULTATION Name: SHERYL VALLADARES Room #: REG [facility] Hansel.#: [id number] Admission: 08/22/18 ������������������ Attend Phys: Chelsie Luz Discharge: ������������������ Date of : 54 Report #: [id number] medications only from 1 physician group ( [facility]). They are to use 1 pharmacy and keep the clinic informed if they change pharmacies. Their responsibilities include making followup visits in a timely fashion and to avoid abrupt discontinuation of medication usage. Their responsibilities further include bringing their medications (bottles from the pharmacy with residual pills) to the visit for possible confirmation of pill counts and the patient understands it is their responsibility to submit to random drug screens to ensure both that the medications prescribed are present, and that no other controlled substances are present. All prescriptions provided today were generated electronically. IMPRESSION: 1. Chronic intractable back pain. 2. Osteoarthritis, status post hip replacements. 3. Neuropathic pain with a diabetic neuropathy and post-laminectomy syndrome. 4. Lumbar radiculopathy. 5. Management of high-risk medications under terms of written opioid agreement. PLAN: 1. We discussed the treatment options with the patient today. The patient felt that he had had some withdrawal symptoms when he decreased his Embeda from 100/4 to 80/3.2. I explained to the patient that it may take in a while for his body to adjust to this lower dose, he would not go through full withdrawal why he is still taking narcotics and he did also have his hydrocodone. The patient feels that those symptoms have subsided some since that was 2 months ago. He is wondering about going back to his previous dose because he feels that he felt less of those symptoms while he was at the higher dose. I explained to him that since he had his hip replacement, we are trying to decrease his narcotics and we will continue him at 8/3.2 of the Embeda once a day. Our plan is not to decrease him in the near future, let his body adjusts to this new level of medications. Prescriptions given today for that as well as for a 4-week release. 2. Prescription given for oxycodone 10/325, #120 for today and 4-week release. This is no change of his previous dose. 3. The patient tells me that he is having feelings of more itchy and burning in his lower extremities and his feet. I discussed with him his diabetic neuropathy and his blood sugars. The patient has no idea what his daily blood sugars are or what his A1c is. I encouraged him to find that out with his primary care doctor, but the patient has been on Lyrica to help with some of his diabetic neuropathy as well as his lumbar radiculopathy. I think it is reasonable to try and increase his Lyrica slightly to see if this helps relieve some of these symptoms. He is currently on Lyrica 150 b.i.d. We will have him increase this dose slowly, starting with 75 during the middle of the day for 3-5 days to make sure he has no problems with side effects and then increase so he has a total dose of 150 three times a day. Samples given to adjust this dose and we will call in prescriptions for him when he is at a current level that is [facility] [address] [place] [address] PAIN MANAGEMENT CONSULTATION Name: SHERYL VALLADARES Room #: REG [facility] Crystal#: [id number] Admission: 08/22/18 ������������������ Attend Phys: Chelsie Luz Discharge: ������������������ Date of : 54 Report #: [id number] helpful to him. 4. We discussed smoking cessation again. The patient is down to 8-10 cigarettes a day. I encouraged him to try and quit again. The patient tells me this is very hard to do, but his is at home with oxygen on. He tells me he does not smoke anywhere near her or in the house. 5. Dr. Chavez Berrios did come and see the patient as well today and collaborated care. The patient will return in 2 months. ��������������������������������������������� <ELECTRONICALLY SIGNED> ���������������������������������������� By: Chelsie Luz ��������������������������������������������� 08/26/18 0715 [id number] Chelsie Luz /minnie
== END ==
LOC: PAIN 06:58
DX: M54.16 Radiculopathy, lumbar region (principal); G89.4 Chronic pain syndrome; M79.671 Pain in right foot; M79.672 Pain in left foot; M19.90 Unspecified osteoarthritis, unspecified site; E11.40 Type 2 diabetes mellitus with diabetic neuropathy, unspecified; M96.1 Postlaminectomy syndrome, not elsewhere classified; Z88.8 Allergy status to other drugs, medicaments and biological substances; Z79.899 Other long term (current) drug therapy; Z79.891 Long term (current) use of opiate analgesic

== ENCOUNTER → 2018-10-21 | Outpatient (CLI) | payer OTHER ==
[~2018-10-21] VITALS: Ht 175.3 cm; Wt 76.4 kg
[2018-10-21 10:48] VITALS: BP 126/54
--- NOTE | 2018-10-21 10:59 | NUR ---
Pain Clinic Assessment: 1. History of Osteoarthritis: CIRILO SHOULDERS CIRILO HIPS History of Rheumatoid Arthritis: Not Applicable 2. Height: 5 ft. 9 in. 175.3 cm. Weight: 168.4 lb. oz. 76.386 kg. Patient's BMI: 24.9 3. Vital Signs: BP: 126/54 Pulse: 58 Resp: 16 Temp: 02 Sat: 99 ECG Mon: 4. Pain Intensity: 3 5. Fall Risk: Dizziness: N Needs help standing or walking: N Fallen in the last 3 months: N Fall risk comments: 6. Patient on Blood Thinner: None 7. History of Hypertension: Y 8. Opioid Therapy greater than 6 weeks: Y Opiate Contract Signed: 09/13/17 9. Risk Assessment Tool Provided: Opioid Risk Tool 10. Functional Assessment Tool: 43 11. Recreational Drug Use: Never Drug Type: Tobacco Use: Current Every Day Smoker Tobacco Type: Cigarettes Amount or Packs/day: 1/2 PACK DAY How Many Years: 50 Alcohol Use: No Frequency: Quant:
--- NOTE | 2018-10-23 13:32 | HPC ---
[facility] [place] [address] PAIN MANAGEMENT CONSULTATION Name: SHERYL VALLADARES BOLIVAR [id number] Admission: 10/21/18 ������������������ Attend Phys: Chelsie Luz Discharge: ������������������ Date of : 54 Report #: [id number] THIS REPORT FOR: //name// CC: Chelsie Proctor [place] DATE OF SERVICE: 10/21/2018 CHIEF COMPLAINT: Low back pain and bilateral foot pain. HISTORY OF PRESENT ILLNESS: This is a very pleasant 68-year-old gentleman who returns to the pain clinic today for refill of his medications that he uses to treat his ongoing low back pain and bilateral foot pain. The patient reports a pain score of 3/10 today that is worse with standing. His medications and heat or sitting in his recliner are very beneficial. He denies any problems with constipation from his medication. The patient tells me he was unable to tolerate the Lyrica during the middle of the day that we had tried him on for his peripheral neuropathy. He tells me he kept falling asleep; it was making so drowsy, so he remains on the a.m. and evening dose of Lyrica 150 mg. ALLERGIES: PREDNISONE, HYDROMORPHONE. CURRENT LIST OF MEDICATIONS: Oxycodone 10/325 every 6 hours p.r.n., Embeda ER 80 mg/3.2 mg daily, aspirin, Lyrica 150 mg b.i.d., Bystolic 20 mg daily, metformin 500 mg b.i.d., Lipitor 20 mg at bedtime, Amaryl 4 mg daily, Accupril 20 mg at bedtime. PATIENT'S PQRS: 1. He has osteoarthritic changes in his shoulders and hips. Denies any rheumatoid arthritis. 2. Height is 5 feet 9 inches, weight is 168, BMI is 24. 3. Vital signs: Blood pressure 126/54, pulse is 58, respirations 16, oxygen sat is 99. 4. Pain score is 3/10. 5. Denies dizziness, does not need help walking and standing. Has not fallen in the last 3 months. 6. The patient is not on blood thinners, but does take medicine for hypertension. 7. Opioid therapy is greater than 6 weeks; therefore, an opioid signed contract is on the chart. Risk assessment tool is low. Functional assessment is 43/70. 8. Recreational drug use, he denies. He is a current smoker of half a pack of cigarettes a day and does not drink alcohol. According to the prescription monitoring system, the patient is filling [address] [address] PAIN MANAGEMENT CONSULTATION Name: SHERYL VALLADARES [id number] Admission: 10/21/18 ������������������ Attend Phys: Chelsie Luz Discharge: ������������������ Date of : 54 Report #: [id number] appropriately for his medications. We will check a random drug screen on this patient today. PHYSICAL EXAMINATION GENERAL: This is a pleasant, well-developed, well-nourished gentleman who appears his stated age, placing his current pain score at 3/10 today. He is alert and orientated. HEENT: Normocephalic, atraumatic. Extraocular eye muscles are intact. Mucous membranes are moist. ABDOMEN: Nontender. Bowel sounds present in all quadrants. MUSCULOSKELETAL: Upper extremity strength judged to be 5/5 in all major muscle groups. Lower extremity strength judged to be 5/5 in all major muscle groups. He does have pain in his bilateral feet. He walks with a slightly antalgic gait. Complains of tenderness across his lumbar spine. We reviewed the fact that opiate medications are being used to provide analgesia adequate to support activities of daily living, not attempting to achieve a specific pain score on the 0-10 Visual Analog Scale. The current opiate medications are providing sufficient analgesia to allow the patient to participate in activities of daily living. The patient is not exhibiting any aberrant behavior suggestive of drug diversion. The patient is not having any adverse reactions to medications. The patient is not suffering from daytime somnolence or mental acuity changes. The patient is managing opiate-induced constipation with appropriate rzex-ghu-pjjimoh agents and dietary considerations. The patient was counseled on concern for caution with operating a motor vehicle while using opiate medications. A physical exam was performed and the patient's functional status was evaluated. All patients with back pain were advised against the bed rest greater than 4 days and were advised to return to normal activities. Pain score assessment was noted and the treatment plan was reviewed with the patient. All current medications, both prescribed and OTC were reviewed and reconciled on the electronic medical record. Tobacco screening was accomplished and smoking cessation was advised when indicated. BMI was noted and diet/exercise modification was recommended for all patients following outside normal parameters. I reviewed with the patient today their responsibilities to safeguard prescription medications, reviewed their responsibility to utilize medications only as prescribed by the physician. They are to seek and receive pain medications only from 1 physician group ([facility]). They are to use 1 pharmacy and keep the clinic informed if they change pharmacies. Their responsibilities include making followup visits in a timely fashion and to avoid abrupt discontinuation of medication usage. Their responsibilities further include bringing their medications (bottles from the pharmacy with residual pills) to the visit for possible confirmation of pill counts and the patient [address] [place] [address] PAIN MANAGEMENT CONSULTATION Name: SHERYL VALLADARES Room #: [facility] [id number] Admission: 10/21/18 ������������������ Attend Phys: Chelsie ALFONSO Natty Discharge: ������������������ Date of : 54 Report #: [id number] understands it is their responsibility to submit to random drug screens to ensure both that the medications prescribed are present, and that no other controlled substances are present. All prescriptions provided today were generated electronically. IMPRESSION: 1. Chronic intractable back pain. 2. Osteoarthritis, status post hip replacements. 3. Neuropathic pain with diabetic neuropathy, post-laminectomy syndrome. 4. Lumbar radiculopathy. 5. Management of high risk medications under terms of written opioid agreement. PLAN: 1. We discussed treatment options with the patient today. The patient continues to tell us that he feels like he has withdrawal symptoms from his Embeda. I explained to him that is been 4 months since we had decreased his medication. I do not believe that he is having withdrawal symptoms. I encouraged the patient to try and take his Embeda at bedtime on a daily basis and see if that is beneficial. He does complain of some abdominal discomfort and back pain early in the morning and reporting these as withdrawal symptoms. 2. Dr. Chavez Berrios did come and see the patient today. Again, we discussed withdrawal symptoms. Dr. Berrios encouraged the patient to see his primary care doctor, maybe he is having reflux or some GI issue that requires an EGD or a colonoscopy. The patient verbalizes understanding, he will see his primary care doctor. The patient reported this problem has been going on since March to the nurse and informed us it has only been going on a few months. 3. We did discuss decreasing his Embeda to 60 mg since he has had his hip replaced x 1 year. Our goal is to decrease his morphine milliequivalents to closer to the CDC guidelines. We informed the patient we will decrease this at the next visit. Scripts given today for oxycodone 10/325, #120, for today and 4-week release as well as his Embeda 80 mg for today and 4-week release. This places the patient at 140 morphine milliequivalents according to the CDC guidelines. 4. No scripts needed for Lyrica today. The patient seen again in collaboration with Dr. Chavez Berrios who did see him as well. The patient will return in 2 months for followup. ��������������������������������������������� <ELECTRONICALLY SIGNED> ���������������������������������������� By: Chelsie Luz ��������������������������������������������� 10/23/18 1332 [id number] Chelsie Luz /nt
== END ==
LOC: PAIN 06:52
DX: M54.16 Radiculopathy, lumbar region (principal); E11.40 Type 2 diabetes mellitus with diabetic neuropathy, unspecified; M16.0 Bilateral primary osteoarthritis of hip; M96.1 Postlaminectomy syndrome, not elsewhere classified; G89.4 Chronic pain syndrome; Z96.643 Presence of artificial hip joint, bilateral; Z79.891 Long term (current) use of opiate analgesic; Z79.899 Other long term (current) drug therapy; Z88.8 Allergy status to other drugs, medicaments and biological substances

== ENCOUNTER → 2018-12-20 | Outpatient (CLI) | payer OTHER ==
[~2018-12-20] VITALS: Ht 175.3 cm; Wt 75.1 kg
[2018-12-20 08:40] VITALS: BP 154/64
--- NOTE | 2018-12-20 08:45 | NUR ---
Pain Clinic Assessment: 1. History of Osteoarthritis: CIRILO SHOULDERS CIRILO HIPS History of Rheumatoid Arthritis: Not Applicable 2. Height: 5 ft. 9 in. 175.3 cm. Weight: 165.6 lb. oz. 75.116 kg. Patient's BMI: 24.4 3. Vital Signs: BP: 154/64 Pulse: 61 Resp: 14 Temp: 02 Sat: 100 ECG Mon: 4. Pain Intensity: 3 5. Fall Risk: Dizziness: N Needs help standing or walking: N Fallen in the last 3 months: N Fall risk comments: 6. Patient on Blood Thinner: None 7. History of Hypertension: Y 8. Opioid Therapy greater than 6 weeks: Y Opiate Contract Signed: 09/13/17 9. Risk Assessment Tool Provided: Opioid Risk Tool 10. Functional Assessment Tool: 43 11. Recreational Drug Use: Never Drug Type: Tobacco Use: Current Every Day Smoker Tobacco Type: Amount or Packs/day: How Many Years: Alcohol Use: No Frequency: Quant:
--- NOTE | 2018-12-27 08:26 | HPC ---
[facility] [place] [address] PAIN MANAGEMENT CONSULTATION Name: SHERYL VALLADARES Room #: REG Flores Bonilla#: [id number] Admission: 12/20/18 Attend Phys: Jayne Roman MD Discharge: Date of : 54 Report #: [id number] THIS REPORT FOR: //name// CC: Sheryl Roman DATE OF SERVICE: 12/20/2018 CHIEF COMPLAINT: Here for medication renewal. HISTORY: The patient is a 68-year-old gentleman who has been followed in the pain clinic. As you may recall, he suffers from chronic back pain as well as some pain involving his neck. He returns today for renewal of his medications. As you may recall, he has had some reflex sympathetic dystrophy type pain down into his leg and feet on both sides. This has been problematic for the last 20 years. He initially fractured his left ankle, broken in 7 places. Since that time, he has continued to have chronic pain. He has pain in the back and neck area. The patient's in the past had been on hospice. She suffers from stage IV breast cancer. He notes some aching tenderness and stabbing in the low back area. He rates his pain overall as a 3/10 today. Prolonged standing can be problematic. He notes that heat, use of his medications and sitting in a reclining chair can help decrease his discomfort. ALLERGIES: DILAUDID AND PREDNISONE. CURRENT MEDICATIONS: Hydrocodone 10/325 mg one p.o. 4-6 hours p.r.n., morphine 100 mg, Embeda, aspirin 325 mg, Lyrica 150 mg b.i.d., Bystolic 20 mg, nitroglycerin 0.4 mg, metformin 500 mg b.i.d., Lipitor 20 mg at bedtime, Amaryl 2 mg daily and Accupril 20 mg. PAIN CLINIC ASSESSMENT AND PQRS: 1. The patient has bilateral shoulder, hip pain and has had a hip replacement. The patient is not being treated for rheumatoid arthritis. 2. Height 5 feet 9 inches, weight 165 pounds, BMI is 24. 3. Vital Signs: Blood pressure 154/64, pulse 61, respiratory rate 14, room air saturation is 100%. 4. Pain intensity 05/26. 5. Fall risk. The patient has not fallen in the last 3 months. 6. Blood thinner. The patient is not on a blood thinning medication. 7. Hypertension. The patient is being treated for hypertension. 8. Opioids greater than 6 weeks. The patient receives medication from one source, the pain clinic. 9. Risk assessment tool, low for opioid use. 10. Functional assessment tool . 11. Recreational drug use: The patient denies. [address] [address] PAIN MANAGEMENT CONSULTATION Name: SHERYL VALLADARES Room #: REG CLI [facility]#: [id number] Admission: 12/20/18 Attend Phys: Jayne Roman MD Discharge: Date of : 54 Report #: [id number] 12. Tobacco: The patient currently smokes tobacco, has smoked greater than 50 years. He is not using vapor/electronic cigarettes. 13. Alcohol. The patient denies alcoholic beverages. PHYSICAL EXAMINATION: GENERAL: The patient is a well-developed, well-nourished white male. Appears his stated age. He is alert and oriented x 3. His affect is appropriate. Speech is fluent. HEENT: Normocephalic, atraumatic. Extraocular eye muscles intact. Sclerae nonicteric. Mucous membranes are moist. NECK: Without adenopathy or JVD. LUNGS: Generally clear to auscultation. HEART: Regular rate. ABDOMEN: Nontender. EXTREMITIES: Upper extremity muscle strength judged to be 5-/5 for the major muscle groups in the upper extremity. The patient is without significant scoliosis, kyphosis or lordosis. The patient has some pain and discomfort that radiates down the lower portion of his back and down into his legs. He describes it as RSD. RECOMMENDATIONS: We discussed treatment options with the patient. At this juncture, we will continue with his current medication regimen. He feels medications are helpful. He has taken the medication as prescribed. We have discussed the problems with opioid medications. They can become less effective over time due to development of tolerance. The patient is not showing signs of addiction. He is taking his medication as prescribed. He is aware that 72,000 people last year as a result of overdosing from medications. A script for renewal of his medications have been written. He will continue with morphine Embeda 80 mg daily, oxycodone 10/325 one p.o. q.i.d., call us if he has any concerns. We would like to thank you for letting us participate in his care. We hope he continues to improve. <ELECTRONICALLY SIGNED> By: Jayne Roman MD 12/27/18 0826 [id number] Jayne Roman MD /nt
== END ==
LOC: PAIN 06:49
DX: M54.2 Cervicalgia (principal); Z88.8 Allergy status to other drugs, medicaments and biological substances; Z79.899 Other long term (current) drug therapy; Z79.82 Long term (current) use of aspirin

== ENCOUNTER → 2019-02-20 | Outpatient (CLI) | payer OTHER ==
[~2019-02-20] VITALS: Ht 175.3 cm; Wt 75.3 kg
[~2019-02-20] MED LIST changes: +EMBEDA ER 60-21 EACH PO
[2019-02-20 08:49] VITALS: BP 139/68
--- NOTE | 2019-02-20 08:56 | NUR ---
Pain Clinic Assessment: 1. History of Osteoarthritis: CIRILO SHOULDERS CIRILO HIPS History of Rheumatoid Arthritis: Not Applicable 2. Height: 5 ft. 9 in. 175.3 cm. Weight: 166.0 lb. oz. 75.297 kg. Patient's BMI: 24.5 3. Vital Signs: BP: 139/68 Pulse: 66 Resp: 16 Temp: 02 Sat: 97 ECG Mon: 4. Pain Intensity: 5 5. Fall Risk: Dizziness: N Needs help standing or walking: N Fallen in the last 3 months: N Fall risk comments: 6. Patient on Blood Thinner: None 7. History of Hypertension: Y 8. Opioid Therapy greater than 6 weeks: Y Opiate Contract Signed: 09/13/17 9. Risk Assessment Tool Provided: LOW-3 10. Functional Assessment Tool: 11. Recreational Drug Use: Never Drug Type: Tobacco Use: Current Every Day Smoker Tobacco Type: Cigarettes Amount or Packs/day: 5 CIGS How Many Years: 52 Alcohol Use: No Frequency: Quant:
--- NOTE | 2019-02-20 16:22 | HPC ---
[facility] [place] [address] PAIN MANAGEMENT CONSULTATION Name: SHERYL VALLADARES [facility] #: [facility] [id number] Admission: 02/20/19 Attend Phys: Chelsie Luz Discharge: Date of : 54 Report #: [id number] THIS REPORT FOR: //name// CC: Chelsie Montoya MD DATE OF SERVICE: 02/20/2019 CHIEF COMPLAINT: Low back pain and bilateral foot pain. HISTORY OF PRESENT ILLNESS: This is a 69-year-old gentleman who returns to the pain clinic today for refill of his medications that he uses to help treat his ongoing low back pain. He is complaining of left leg pain as well today and bilateral foot pain. His pain score per his report is 5/10. It is a stabbing, aching tenderness that is worse with standing. He feels that his medications are beneficial as well as heat and sitting in a recliner. He continues do need to care for his who has cancer at home and that keeps him very busy. He denies any problems with side effects of the medications such as daytime sleepiness or constipation. Today, he would like refills of his medicines. ALLERGIES: PREDNISONE AND HYDROMORPHONE. CURRENT LIST OF MEDICATIONS: Oxycodone 10/325 q.i.d. p.r.n., Embeda 80/3.2 daily, aspirin, Lyrica 150 mg b.i.d., Bystolic 20 mg daily, metformin 500 mg b.i.d., Lipitor 20 mg at bedtime, Amaryl 2 mg daily and Accupril 20 mg at bedtime. PATIENT'S PQRS: 1. He has a history of bilateral shoulder, hip osteoarthritis, not being treated for rheumatoid arthritis. 2. Height is 5 feet 9 inches, weight is 166. BMI is 24. 3. Vital signs 139/68, pulse is 66, respirations 16, oxygen sat is 97. 4. Pain score is 5/10. 5. Denies dizziness, does not need help walking or standing, has not fallen in the last 3 months. 6. The patient is not on any blood thinners, but does take medicine for hypertension. 7. Opiate therapy is greater than 6 weeks; therefore, an opioid signed contract is on the chart. Risk assessment tool is low. Functional assessment is 29/70. 8. Recreational drug use, he denies. He is a current smoker of 5 cigarettes a day and does not drink alcohol. According to the prescription monitoring system and [facility], the patient filled his medicines just last week for his Embeda. He keeps this in a safe place per his report, there is a recent drug screen on the chart that is [address] [address] PAIN MANAGEMENT CONSULTATION Name: SHERYL VALLADARES Room #: REG CLI Bonilla#: [id number] Admission: 02/20/19 Attend Phys: Chelsie Luz Discharge: Date of : 54 Report #: [id number] appropriate as well. PHYSICAL EXAMINATION: GENERAL: This is a well-developed, well-nourished white gentleman who appears his stated age of 69, placing his current pain score at 5/10. His affect is appropriate. HEENT: Normocephalic, atraumatic. Extraocular eye muscles are intact. Sclerae are nonintrinsic. Mucous membranes are moist. NECK: Without adenopathy or JVD. HEART: Regular rate. EXTREMITIES: The patient is without significant scoliosis, kyphosis or lordosis. He has pain that radiates from his lower back down the posterior portion of his right leg. He walks with a slightly antalgic gait. He has burning and has numbness in his bilateral feet. Lower extremity strength judged to be 5/5 in all major muscle groups with good sensation and muscle bulk. IMPRESSION: 1. Chronic intractable back pain. 2. Osteoarthritis, status post hip replacement. 3. Neuropathic pain with diabetic neuropathy and post-laminectomy syndrome. 4. Lumbar radiculopathy. 5. Management of high risk medications under terms of written opioid agreement. PLAN: 1. We discussed treatment options with the patient today. We had discussed decreasing his medications a few months ago since he has recovered from his total hip surgery and he is above the CDC guidelines currently at 140. Our intention is to decrease him to 60 mg of Embeda/2.4 today and continue this for several months before we would think about decreasing him again. The patient states he still has a significant pain that he understands we are needing to decrease his medicine. Today, we will write scripts for Embeda 60/2.4, #30 for today and 4-week release, though the patient does not need them for 2 more weeks. This will allow his pharmacy of time to order this medication. 2. Scripts for oxycodone 10/325, #120 for today and 4-week release. 3. The patient did see Dr. Chavez Berrios who collaborated care today. The patient encouraged to take occasional ibuprofen or Aleve for increased joint pain. We will call in Lyrica if need be before his next appointment. <ELECTRONICALLY SIGNED> By: Chelsie Luz 02/20/19 1622 [id number] [id number] Chelsie Luz /minnie
== END ==
LOC: PAIN 06:48
DX: G89.4 Chronic pain syndrome (principal); M16.0 Bilateral primary osteoarthritis of hip; E11.40 Type 2 diabetes mellitus with diabetic neuropathy, unspecified; M54.16 Radiculopathy, lumbar region; Z79.891 Long term (current) use of opiate analgesic

== ENCOUNTER → 2019-04-17 | Outpatient (CLI) | payer OTHER ==
[~2019-04-17] VITALS: Ht 175.3 cm; Wt 77.7 kg
[~2019-04-17] MED LIST changes: +MS CONTIN 30 MG30 M1 PO
[2019-04-17 13:30] VITALS: BP 141/52
--- NOTE | 2019-04-17 13:36 | NUR ---
Pain Clinic Assessment: 1. History of Osteoarthritis: CIRILO SHOULDERS CIRILO HIPS History of Rheumatoid Arthritis: Not Applicable 2. Height: 5 ft. 9 in. 175.3 cm. Weight: 171.4 lb. oz. 77.747 kg. Patient's BMI: 25.3 3. Vital Signs: BP: 141/52 Pulse: 60 Resp: 14 Temp: 02 Sat: 98 ECG Mon: 4. Pain Intensity: 3-10 5. Fall Risk: Dizziness: N Needs help standing or walking: N Fallen in the last 3 months: N Fall risk comments: 6. Patient on Blood Thinner: None 7. History of Hypertension: Y 8. Opioid Therapy greater than 6 weeks: Y Opiate Contract Signed: 09/13/17 9. Risk Assessment Tool Provided: LOW-3 10. Functional Assessment Tool: 11. Recreational Drug Use: Never Drug Type: Tobacco Use: Current Every Day Smoker Tobacco Type: Amount or Packs/day: 0.5 How Many Years: Alcohol Use: No Frequency: Quant:
--- NOTE | 2019-04-21 15:57 | HPC ---
[facility] [address] [address] PAIN MANAGEMENT CONSULTATION Name: SHERYL VALLADARES Room #: REG ESTELA Crystal#: [id number] Admission: 04/17/19 Attend Phys: Chelsie Luz Discharge: Date of : 54 Report #: [id number] THIS REPORT FOR: cc: Sheryl Shepherd James R. DO Hocker, Amanda CNS ~ THIS REPORT FOR: //name// DATE OF SERVICE: 04/17/2019 CHIEF COMPLAINT: Low back pain and bilateral foot pain. HISTORY OF PRESENT ILLNESS: This is a 69-year-old gentleman who returned to the pain clinic today to discuss his medications. He has been stable on his Embeda for quite some time. They are withdrawing this medication from the market; so therefore, we will need to rotate him to a different long-acting opioid medication. Today, he is reporting his pain score 3/10. His pain is located in his lower back and left leg into his feet. It is a sharp, tender, aching feeling, worse with prolonged standing and lifting. He does have to care for his , who was on hospice care that does increase his pain significantly. He feels the medication has been beneficial as well as heat and sitting in his recliner. He denies any problems with constipation from his opioid medication. We have discussed trying to taper his medication and had been doing some slowly over the past year. Last visit, we attempted to decrease his Embeda to 60 mg that his pharmacy did not have 60 on stock, they had 2 months of 80 mg Embeda left and it now has been removed from the market, so today, we will taper him to 60 mg of an equal analgesic medicine. ALLERGIES: PREDNISONE AND HYDROMORPHONE. CURRENT LIST OF MEDICATIONS: Embeda 80/3.2, oxycodone 10/325 p.r.n., aspirin, Lyrica 150 mg b.i.d., Bystolic, Glucophage, atorvastatin, Amaryl and Accupril. PQRS: 1. He has a history of bilateral shoulder and hip osteoarthritis. He is not being treated for rheumatoid arthritis. 2. Height is 5 feet 9 inches, weight is 171, BMI is 25. 3. Vital signs 141/52, pulse is 60, respirations 14, oxygen sat is 98. 4. Pain score is 3/10. 5. Denies dizziness, does not need help walking or standing, has not fallen in the last 3 months. 6. The patient is not on any blood thinners, but does take medicine for hypertension. His opioid therapy is greater than 6 weeks; therefore, an opioid [address] [address] PAIN MANAGEMENT CONSULTATION Name: BLAINESHERYL LUTZ Room #: REG ESTELA Crystal#: [id number] Admission: 04/17/19 Attend Phys: Chelsie Luz Discharge: Date of : 54 Report #: [id number] signed contract is on the chart. Risk assessment tool is low. Functional assessment is 29/70. 7. Recreational drug use, he denies. He is a current smoker of half a pack of cigarettes a day. He denies any alcohol use. According to the prescription monitoring system, the patient is filling appropriately at one pharmacy. His morphine mEq is high at 140 MME before our reduction today. Today, reduction will place him at 120 morphine mEq, still above the CDC guidelines, but we are continuing to taper him slowly. PHYSICAL EXAMINATION: GENERAL: This is a well-developed, well-nourished gentleman who appears his stated age, placing his current pain score at 3/10 today. HEENT: Normocephalic, atraumatic. Extraocular eye muscles are intact. Mucous membranes are moist. EXTREMITIES: He is without significant scoliosis, kyphosis or lordosis. He has pain in his lumbosacral area that radiates down his left leg today and burning and numbness in his bilateral feet. His lower extremity strength judged to be 5/5 in all major muscle groups. He does have a slightly antalgic gait. IMPRESSION: 1. Chronic intractable back pain. 2. Osteoarthritis, status post hip replacement. 3. Neuropathic pain with diabetic neuropathy and post-laminectomy syndrome. 4. Lumbar radiculopathy. 5. Management of high risk medications under terms of written opioid agreement. We reviewed the fact that opiate medications are being used to provide analgesia adequate to support activities of daily living, not attempting to achieve a specific pain score on the 0-10 Visual Analog Scale. The current opiate medications are providing sufficient analgesia to allow the patient to participate in activities of daily living. The patient is not exhibiting any aberrant behavior suggestive of drug diversion. The patient is not having any adverse reactions to medications. The patient is not suffering from daytime somnolence or mental acuity changes. The patient is managing opiate-induced constipation with appropriate errz-ach-ksgyavd agents and dietary considerations. The patient was counseled on concern for caution with operating a motor vehicle while using opiate medications. PLAN: 1. We discussed treatment options with the patient today. We discussed various long-acting medications to rotate him too since the Embeda is no longer on the market. Our plan is to decrease him from 80 mg of morphine a day to 60 mg of morphine a day. Therefore, we have chosen MS Contin 30 mg b.i.d. This is a reduction by 20 morphine mEq per day and we will now place him at 120 morphine mEq per the CDC guidelines daily. I believe this should be covered by his insurance company and that should be much cheaper option for the patient than [facility] [address] [place] [address] PAIN MANAGEMENT CONSULTATION Name: SHERYL VALLADARES Room #: REG [facility] [id number] Admission: 04/17/19 Attend Phys: Chelsie Luz Discharge: Date of : 54 Report #: [id number] Embeda. I explained to him that it is still a long-acting medication that he may take twice a day instead of once daily and he continue his oxycodone for breakthrough pain. 2. The patient cares for his who is on hospice care at home. She has fallen several times. I encouraged the patient to call for assistance from the fire department instead of him lifting her and risk hurting himself. I also encouraged him to call the hospice to see if they will come more frequently to aid him in caring for his . 3. The patient is seen today in collaboration with Dr. Chavez Berrios, who electronically sent MS Contin 30 mg b.i.d. for today and 4-week release and oxycodone , #120 for today and 4-week release. <ELECTRONICALLY SIGNED> By: Chelsie Luz 04/21/19 1557 [id number] Chelsie arenas
== END ==
LOC: PAIN 06:56
DX: G89.4 Chronic pain syndrome (principal); M19.90 Unspecified osteoarthritis, unspecified site; M54.16 Radiculopathy, lumbar region; Z79.891 Long term (current) use of opiate analgesic

== ENCOUNTER → 2019-07-02 | Outpatient (CLI) | payer OTHER ==
[~2019-07-02] VITALS: Ht 175.3 cm; Wt 74.4 kg
[~2019-07-02] MED LIST changes: +NARCAN4 MG NARES
--- NOTE | ~2019-07-02 | HPC ---
[facility] [place] [address] PAIN MANAGEMENT CONSULTATION Name: SHERYL VALLADARES Room #: REG ESTELA HammErin#: [id number] Admission: 07/02/19 Attend Phys: Jayne Roman MD Discharge: Date of : 54 Report #: [id number] THIS REPORT FOR: cc: Sheryl Shepherd James R. DO Brown, N. Wayne MD ~ CC: Derick Roman DATE OF SERVICE: 07/02/2019 CHIEF COMPLAINT: Continued pain in the feet and ankles as well as hips and shoulders. HISTORY: The patient is a 69-year-old gentleman who has been followed in the Pain Clinic. As you may recall, he has suffered from chronic pain. He has pain in his back. It involves his neck. He also complains of some pain and discomfort in his hips. He has had bilateral hip replacements. He has some reflex sympathetic dystrophy pain in his legs and involving his feet on both sides. This has been problematic for the last 20 years. He initially fractured his left ankle. It was broken in 7 places. Since that time, he has continued to have chronic pain, which has been quite problematic. His was in hospice. She suffered from stage IV breast cancer. He is dealing with that loss. He would like to have his medications renewed. He feels that they are helpful. ALLERGIES: DILAUDID AND PREDNISONE. CURRENT MEDICATIONS: Oxycodone 10/325 one p.o. every 4-6 hours p.r.n., morphine, MS Contin 30 mg b.i.d., aspirin 325 mg, Lyrica 150 mg b.i.d., Bystolic 20 mg, nitroglycerin 0.4 mg, metformin 500 mg b.i.d., Lipitor 20 mg at bedtime, Amaryl 2 mg daily, and Accupril 20 mg. PAIN CLINIC ASSESSMENT AND PQRS: 1. The patient has had bilateral hip replacements. He is not being treated for rheumatoid arthritis. 2. Height 5 feet 9 inches, weight 164 pounds, BMI is 24. 3. Vital signs: Blood pressure is 189/68, pulse 54, respiratory rate 16, and room air saturation is 99%. 4. Pain intensity 3-5/10. Pain is radiating down in the lower portion of his back in the L5-S1 dermatomal distribution of his legs. 5. Fall risk. The patient has not fallen in the last 3 months. 6. Blood thinner. The patient is not on a blood thinning medication. 7. Hypertension. The patient is being [place] [address] PAIN MANAGEMENT CONSULTATION Name: SHERYL VALLADARES Room #: REG CL Bonilla#: [id number] Admission: 07/02/19 Attend Phys: Jayne Roman MD Discharge: Date of : 54 Report #: [id number] 8. Opioids greater than 6 weeks. The patient receives medication from the Pain Clinic. 9. Risk assessment tool, low for opioid use. 10. Functional assessment tool . 11. Recreational drug use: The patient denies. 12. Tobacco: The patient smokes 1-1/2 pack of cigarettes per day, has smoked for the last 50 years. 13. Alcohol. The patient denies use of alcoholic beverages. PHYSICAL EXAMINATION: GENERAL: The patient is a well-developed, well-nourished white male. Appears his stated age. He is alert and oriented x 3. His affect is appropriate. Speech is fluent. HEENT: Normocephalic, atraumatic. Extraocular eye muscles intact. Sclerae nonicteric. Mucous membranes are moist. NECK: Without adenopathy or JVD. LUNGS: Generally clear. HEART: Regular rate. ABDOMEN: Nontender. MUSCULOSKELETAL: Upper extremity muscle strength judged to be 5-/5 for the major muscle groups in the upper extremity. The patient complains of pain and discomfort in his hips bilaterally as well as pain in the lower back with pain that radiates down into his feet with numbness and discomfort in the feet. Has a reflex sympathetic dystrophy type presentation. RECOMMENDATIONS: We discussed treatment options with the patient. At this juncture, we will continue with his medications. The medications have been rewritten. The patient is aware that opioid medications can become less effective over time. Some patients have developed addiction. The patient does not feel he is addicted. He feels these medications are helpful. He has been having this pain for approximately 20 years. States he keeps his medications in a guarded area. We have provided the patient with naloxone. We have explained to him that this medication can be helpful should there be an emergency where respiratory depression is a problem. It could also be used if a family member had on ____ taken some of his medication and was suffering from respiratory problems as well. A script for his medications has been written. He will continue with oxycodone 10 mg one p.o. every 4-6 hours as well as morphine slow release 30 mg b.i.d. The patient will call us if he has any concerns. We would like to thank you for letting us participate in his care. We hope he continues to improve. By: [id number] MD dagoberto Mayen
[2019-07-02 13:28] VITALS: BP 189/68
--- NOTE | 2019-07-02 13:33 | NUR ---
Pain Clinic Assessment: 1. History of Osteoarthritis: CIRILO SHOULDERS CIRILO HIPS History of Rheumatoid Arthritis: Not Applicable 2. Height: 5 ft. 9 in. 175.3 cm. Weight: 164.0 lb. oz. 74.390 kg. Patient's BMI: 24.2 3. Vital Signs: BP: 189/68 Pulse: 54 Resp: 16 Temp: 02 Sat: 99 ECG Mon: 4. Pain Intensity: 3-5 5. Fall Risk: Dizziness: N Needs help standing or walking: N Fallen in the last 3 months: N Fall risk comments: 6. Patient on Blood Thinner: None 7. History of Hypertension: Y 8. Opioid Therapy greater than 6 weeks: Y Opiate Contract Signed: 09/13/17 9. Risk Assessment Tool Provided: LOW-3 10. Functional Assessment Tool: 11. Recreational Drug Use: Never Drug Type: Tobacco Use: Current Every Day Smoker Tobacco Type: Cigarettes Amount or Packs/day: 1/2 How Many Years: 50 Alcohol Use: No Frequency: Quant:
== END ==
LOC: PAIN 08:29
DX: M25.552 Pain in left hip (principal); M25.551 Pain in right hip; M79.673 Pain in unspecified foot; G89.4 Chronic pain syndrome; I10 Essential (primary) hypertension; F11.20 Opioid dependence, uncomplicated; M25.511 Pain in right shoulder; M25.512 Pain in left shoulder; Z79.899 Other long term (current) drug therapy; Z88.8 Allergy status to other drugs, medicaments and biological substances

== ENCOUNTER → 2019-09-05 | Outpatient (CLI) | payer OTHER ==
[~2019-09-05] VITALS: Ht 175.3 cm; Wt 75.1 kg
[2019-09-05 09:26] VITALS: BP 138/49
--- NOTE | 2019-09-05 09:30 | NUR ---
Pain Clinic Assessment: 1. History of Osteoarthritis: CIRILO SHOULDERS CIRILO HIPS History of Rheumatoid Arthritis: Not Applicable 2. Height: 5 ft. 9 in. 175.3 cm. Weight: 165.6 lb. oz. 75.116 kg. Patient's BMI: 24.4 3. Vital Signs: BP: 138/49 Pulse: 56 Resp: 18 Temp: 02 Sat: 98 ECG Mon: 4. Pain Intensity: 8 5. Fall Risk: Dizziness: N Needs help standing or walking: N Fallen in the last 3 months: N Fall risk comments: 6. Patient on Blood Thinner: None 7. History of Hypertension: Y 8. Opioid Therapy greater than 6 weeks: Y Opiate Contract Signed: 09/13/17 9. Risk Assessment Tool Provided: LOW-3 10. Functional Assessment Tool: 11. Recreational Drug Use: Never Drug Type: Tobacco Use: Current Every Day Smoker Tobacco Type: Cigarettes Amount or Packs/day: 1/2 How Many Years: 50 Alcohol Use: No Frequency: Quant:
--- NOTE | 2019-09-08 09:00 | HPC ---
[facility] [place] [address] PAIN MANAGEMENT CONSULTATION Name: SHERYL VALLADARES Room #: REG ESTELA Bonilla#: [id number] Admission: 09/05/19 Attend Phys: Chelsie Luz Discharge: Date of : 54 Report #: [id number] THIS REPORT FOR: cc: Sheryl Shepherd James R. DO Hocker, Amanda CNS ~ CC: Chelsie HAMILTON N Artemio Roman MD DATE OF SERVICE: 09/05/2019 CHIEF COMPLAINT: Low back pain, bilateral foot pain and hip pain. HISTORY OF PRESENT ILLNESS: As you know, this is a very pleasant 69-year-old gentleman who returns to the pain clinic today for a refill of his opioid medications. He continues to have ongoing low back pain that radiates into his legs. Today, he is reporting an increased pain score of 8/10 because he was working in his yard and moved several tons of dirt working on a project. Normally, his pain is a 3-4 with his current pain regimen. He states that it is an aching tenderness that is associated with numbness and tingling in his feet as well. He believes that standing and lifting make his pain worse. His medications have been beneficial as well as his recliner and a hot bath. The patient does state that the MS Contin is effective in controlling his pain. He does not mind taking 2 tablets a day. He finds that the cost is significantly less than when he was on the Embeda as well. He does take his breakthrough pain medicine throughout the day. He has started back to work since his had earlier this year. He is making gutters, is up on a ladder, it is very careful and states he is able to sleep better at night because he is tired on the days that he works. ALLERGIES: PREDNISONE AND HYDROMORPHONE. CURRENT LIST OF MEDICATIONS: Lyrica 150 mg b.i.d., oxycodone 10/325 q.i.d., MS Contin 30 mg b.i.d., aspirin, Bystolic, Glucophage, Lipitor, Amaryl and Accupril. PQRS: 1. He has had bilateral hip replacements due to osteoarthritis. He is not being treated for rheumatoid arthritis. 2. Height is 5 feet 9 inches, weight is 165, BMI is 24. 3. Vital signs, 138/49, pulse is 56, respirations 18, oxygen sat is 98. 4. Pain score is 8/10, usually 3/10 to 4/10. 5. The patient denies dizziness, does not need help walking or standing, has not fallen in the last 3 months. 6. The patient is not on any blood thinners, but does take medicine for [address] [address] PAIN MANAGEMENT CONSULTATION Name: SHERYL VALLADARES Room #: REG CLFlores Crystal#: [id number] Admission: 09/05/19 Attend Phys: Chelsie Luz Discharge: Date of : 54 Report #: [id number] hypertension. 7. Opioid therapy is greater than 6 weeks; therefore, an opioid signed contract is on the chart. Risk assessment tool is low. Functional assessment is 29/70. 8. Recreational drug use, he denies. He is a current smoker of half a pack a day and does not drink alcohol. According to the prescription monitoring system, the patient is filling appropriately with his opioid medications. His current morphine milligram equivalent is 120 MME. He is seen every 2 months in our clinic. There is a recent drug screen on the chart, but we will repeat that later this year. PHYSICAL EXAMINATION: GENERAL: This is a well-developed, well-nourished white gentleman who appears his stated age. He is alert and orientated, placing his current pain score at 8/10 today. His speech is fluent. HEENT: Normocephalic, atraumatic. Extraocular eye muscles are intact. Sclerae nonintrinsic. He is wearing a mask. NECK: Without adenopathy or JVD. MUSCULOSKELETAL: He has discomfort in the lower lumbar spine that radiates into his feet with numbness and tingly in his feet bilaterally, has a reflex sympathetic dystrophy type presentation. He does have tenderness and pain in his bilateral hips as well. Upper and lower extremity strength judged to be 5/5 in all major muscle groups. ASSESSMENT: 1. Chronic intractable back pain. 2. Osteoarthritis, status post hip replacement. 3. Neuropathic pain with diabetic neuropathy and post-laminectomy syndrome. 4. Lumbar radiculopathy. 5. Management of high risk medications under terms of written opioid agreement. We reviewed the fact that opiate medications are being used to provide analgesia adequate to support activities of daily living, not attempting to achieve a specific pain score on the 0-10 Visual Analog Scale. The current opiate medications are providing sufficient analgesia to allow the patient to participate in activities of daily living. The patient is not exhibiting any aberrant behavior suggestive of drug diversion. The patient is not having any adverse reactions to medications. The patient is not suffering from daytime somnolence or mental acuity changes. The patient is managing opiate-induced constipation with appropriate tbnd-las-xhtteur agents and dietary considerations. The patient was counseled on concern for caution with operating a motor vehicle while using opiate medications. PLAN: 1. We discussed treatment options with the patient today. The patient finds that the morphine sulfate does control his pain. He is thankful that it is less [facility] [address] [place] [address] PAIN MANAGEMENT CONSULTATION Name: SHERYL VALLADARES Room #: REG ESTELA KathleenDulce#: [id number] Admission: 09/05/19 Attend Phys: Chelsie Luz Discharge: Date of : 54 Report #: [id number] expensive than has Embeda and easier to find at his local pharmacy. Normally, his pain is reduced in a level of 3-4, though higher today due to increased activity. 2. We will have Dr. James Roman refill his MS Contin 30 mg, #60 for today and 4-week release as well as his oxycodone 10/325, #120 for today and 4-week release. 3. The patient will continue on his Lyrica as well, which does help with his neuropathy, filling this at #60 with one additional refill. 4. The patient seen in collaboration with Dr. James Roman. <ELECTRONICALLY SIGNED> By: Chelsie Luz 09/08/19 0900 [id number] Chelsie Luz /nt
== END ==
LOC: PAIN 06:47
PROVIDERS: ATTEND Clinical Nurse Specialist Adult Health
DX: M54.16 Radiculopathy, lumbar region (principal); M79.672 Pain in left foot; M79.671 Pain in right foot; M19.90 Unspecified osteoarthritis, unspecified site; M96.1 Postlaminectomy syndrome, not elsewhere classified; E11.40 Type 2 diabetes mellitus with diabetic neuropathy, unspecified; Z88.8 Allergy status to other drugs, medicaments and biological substances; Z79.899 Other long term (current) drug therapy

== ENCOUNTER → 2019-11-03 | Outpatient (CLI) | payer OTHER ==
[~2019-11-03] VITALS: Ht 175.3 cm; Wt 76.3 kg
[~2019-11-03] MED LIST changes: +PERCOCET 10-321 EAC1 PO
[2019-11-03 13:16] VITALS: BP 160/68
--- NOTE | 2019-11-03 13:32 | NUR ---
Pain Clinic Assessment: 1. History of Osteoarthritis: CIRILO SHOULDERS CIRILO HIPS History of Rheumatoid Arthritis: Not Applicable 2. Height: 5 ft. 9 in. 175.3 cm. Weight: 168.2 lb. oz. 76.295 kg. Patient's BMI: 24.8 3. Vital Signs: BP: 160/68 Pulse: 53 Resp: 14 Temp: 02 Sat: 98 ECG Mon: 4. Pain Intensity: 4 5. Fall Risk: Dizziness: N Needs help standing or walking: N Fallen in the last 3 months: N Fall risk comments: 6. Patient on Blood Thinner: None 7. History of Hypertension: Y 8. Opioid Therapy greater than 6 weeks: Y Opiate Contract Signed: 09/13/17 9. Risk Assessment Tool Provided: LOW-3 10. Functional Assessment Tool: 11. Recreational Drug Use: Never Drug Type: Tobacco Use: Current Every Day Smoker Tobacco Type: Amount or Packs/day: How Many Years: Alcohol Use: No Frequency: Quant:
--- NOTE | 2019-11-04 14:24 | HPC ---
[facility] [address] [address] PAIN MANAGEMENT CONSULTATION Name: SHERYL VALLADARES Room #: REG RITAFlores Crystal#: [id number] Admission: 11/03/19 Attend Phys: Chelsie Luz Discharge: Date of : 54 Report #: [id number] THIS REPORT FOR: cc: Sheryl Shepherd James R. DO Hocker, Amanda CNS ~ CC: Chavez Berrios MD DATE OF SERVICE: 11/03/2019 CHIEF COMPLAINT: Low back pain and bilateral foot pain. HISTORY OF PRESENT ILLNESS: This is a very pleasant 69-year-old gentleman who returns to the pain clinic today for refill of his opioid medications that he uses to help treat his ongoing low back pain as well as his hip pain and neuropathy. Today, he is reporting a pain score of 4/10, mostly located in his back. He states that his pain is increased when he goes up and down ladders. 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 He does have a couple of helpers, but he is very active and this does increase his pain at times. He reports he was out of shape after caring for his for so long and not working. He also reports being in the heat does increase his pain. He feels that it is an achy, tender and numbness and tingly in his feet as a result of his neuropathy. He denies any problems with constipation or daytime somnolence. He would like refills of all of his medicine today. ALLERGIES: PREDNISONE AND HYDROMORPHONE. CURRENT LIST OF MEDICATIONS: Lyrica 150 mg b.i.d., oxycodone 10/325 q.i.d. p.r.n., morphine sulfate 30 mg b.i.d., aspirin, Bystolic, Glucophage, Lipitor, Amaryl and Accupril. PQRS: 1. He has osteoarthritis in his hips having hip replacement and denies any rheumatoid arthritis. 2. Height is 5 feet 9 inches, weight is 168, BMI is 24. 3. Vital signs 160/68, pulse is 53, respirations 14, oxygen sat is 98, pain score is 4/10. 4. Fall risk. Denies dizziness, does not need help walking or standing, has not fallen in the last 3 months. He is not on blood thinners and he does take medicine for hypertension. His opioid therapy is greater than 6 weeks; therefore, an opioid signed contract is on the chart. Risk assessment is low. Functional assessment is 29/70. 5. Recreational drug use, he denies. He is a current smoker and does not drink alcohol. [address] [address] PAIN MANAGEMENT CONSULTATION Name: SHERYL VALLADARES Room #: REG CL Bonilla#: [id number] Admission: 11/03/19 Attend Phys: Chelsie Luz Discharge: Date of : 54 Report #: [id number] According to the prescription monitoring system, he is due to fill his medications today, filling them in a timely fashion. According to the CDC guidelines, his morphine milliequivalent is 120. This is a decrease of where he was previously, but still higher than the CDC recommends. We will in the future try to decrease him again. PHYSICAL EXAMINATION: GENERAL: This is a well-developed, well-nourished, well-hydrated white male, who appears his stated age, placing his current pain score 4/10. He is alert and orientated and his affect is appropriate. HEENT: Normocephalic, atraumatic. Extraocular eye muscles are intact. Sclerae are nonintrinsic. He is wearing a mask today. NECK: Without adenopathy or JVD. MUSCULOSKELETAL: Pain and discomfort that radiates from his lower back into his hips bilaterally, into his feet with significant burning and tingly in his lower extremities. His lower extremity strength is symmetrical at 5/5. He walks with a slightly antalgic gait. He is without significant scoliosis, kyphosis or lordosis. IMPRESSION: 1. Chronic intractable back pain. 2. Osteoarthritis, status post hip replacement. 3. Neuropathic pain with diabetic neuropathy and post-laminectomy syndrome. 4. Lumbar radiculopathy. 5. Management of medications under terms of written opioid agreement. We reviewed the fact that opiate medications are being used to provide analgesia adequate to support activities of daily living, not attempting to achieve a specific pain score on the 0-10 Visual Analog Scale. The current opiate medications are providing sufficient analgesia to allow the patient to participate in activities of daily living. The patient is not exhibiting any aberrant behavior suggestive of drug diversion. The patient is not having any adverse reactions to medications. The patient is not suffering from daytime somnolence or mental acuity changes. The patient is managing opiate-induced constipation with appropriate remf-zfh-rfwtcrp agents and dietary considerations. The patient was counseled on concern for caution with operating a motor vehicle while using opiate medications. PLAN: 1. We will discuss treatment options with the patient today. At this time, we will continue his current medications, though in the future, we may try to decrease his medications again slightly. Dr. Chavez Berrios will send his MS Contin 30 mg b.i.d., #60 for today and 4-week release as well as his Percocet 10/325, #120 for today and 4-week release. 2. Lyrica 150 p.o. b.i.d., #60 with one additional refill will also be sent for the patient's neuropathic symptoms. The patient states he does not check his [facility] [address] [place] [address] PAIN MANAGEMENT CONSULTATION Name: SHERYL VALLADARES BOLIVAR Room #: REG CLFlores Crystal#: [id number] Admission: 11/03/19 Attend Phys: Chelsie Luz Discharge: Date of : 54 Report #: [id number] blood sugar on a daily basis and has not had his A1c drawn in recent history that he can remember. I encouraged him to seek his doctor and have blood work drawn. 3. The patient will return in 2 months for medication management. The patient is seen today in collaboration with Dr. Chavez Berrios. <ELECTRONICALLY SIGNED> By: Chelsie Luz 11/04/19 1424 [id number] Chelsie Luz /minnie
== END ==
LOC: PAIN 07:10
PROVIDERS: ATTEND Clinical Nurse Specialist Adult Health
DX: M54.16 Radiculopathy, lumbar region (principal); G89.4 Chronic pain syndrome; E11.40 Type 2 diabetes mellitus with diabetic neuropathy, unspecified; M25.571 Pain in right ankle and joints of right foot; M25.572 Pain in left ankle and joints of left foot; Z79.891 Long term (current) use of opiate analgesic

== ENCOUNTER → 2020-01-02 | Outpatient (CLI) | payer OTHER ==
[~2020-01-02] VITALS: Ht 175.3 cm; Wt 75.5 kg
--- NOTE | ~2020-01-02 | HPC ---
[facility] [address] [place] [address] PAIN MANAGEMENT CONSULTATION Name: SHERYL VALLADARES Room #: REG ESTELA Bonilla#: [id number] Admission: 01/02/20 Attend Phys: Jayne Roman MD Discharge: Date of : 54 Report #: [id number] CC: Sheryl Roman DATE OF SERVICE: 01/02/2020 CHIEF COMPLAINT: Continued right hip pain. HISTORY: The patient is a 69-year-old gentleman who has been followed in the pain clinic because of chronic pain. He has pain in his back. Also, has pain in his neck. He has pain that involves his hips. He has had bilateral hip replacement. He has some reflex sympathetic dystrophy type pain in his legs and his feet involving both sides. The patient has had chronic pain for the last 20 years. He initially fractured his left ankle. It was broken in 7 places. Since that time, he has continued to have chronic pain that is problematic. He rates his pain as a 3/10, pain is most problematic in the left leg. His diagnosed with stage 4 cancer. They have been together for 43 years. Notes that if he is standing, lifting or sitting for too long, this pain can be more problematic. Notes that use of recliner, hot baths and heat can be beneficial. He has returned today with hopes of having his medications renewed. ALLERGIES: PREDNISONE AND HYDROMORPHONE. CURRENT MEDICATIONS: Lyrica 150 mg b.i.d., oxycodone 10/325 1 p.o. q.i.d., morphine sulfate 30 mg b.i.d., aspirin, Bystolic, Glucophage, Lipitor, Amaryl, Accupril. PAIN CLINIC ASSESSMENT AND PQRS: 1. Bilateral shoulder pain and bilateral hip pain, history of rheumatoid arthritis. The patient is not being treated for rheumatoid arthritis. 2. Height 5 feet 9 inches, weight 166 pounds, BMI is 24.6. 3. Vital Signs: Blood pressure 167/65, pulse 55, respiratory rate 14, room air saturation is 100%. 4. Pain intensity, 05/26. 5. Fall history. The patient has not fallen in the last 3 months. 6. Blood thinner. The patient is not on a blood thinning medication. 7. Hypertension. The patient is being treated for hypertension. 8. Opioids greater than 6 weeks. The patient received medication from the pain clinic. 9. Risk assessment tool, low for opioid use. 10. Functional assessment tool, . 11. Recreational drug use. The patient denies. 12. Tobacco. The patient does smoke. 13. Alcohol. The patient denies frequent use of alcoholic beverages. PHYSICAL EXAMINATION: GENERAL: The patient is a well-developed, well-nourished, white male. Appears his stated age. He is alert and oriented x 3. His affect is appropriate. Speech is fluent. HEENT: Normocephalic, atraumatic. Extraocular eye muscles intact. The patient is wearing a facial covering. NECK: Without adenopathy. LUNGS: Generally clear. HEART: Regular rate. ABDOMEN: Nontender. MUSCULOSKELETAL: Upper extremity muscle strength judged to be 5-/5 for the major muscle groups in the upper extremity. The patient does complain of some pain and discomfort in his shoulders bilaterally. Also, complains of pain and discomfort in his hips and pain in the lower back that radiates down into his feet with numbness and discomfort. Has a reflex sympathetic dystrophy type of presentation. RECOMMENDATIONS: We discussed treatment options with the patient. At this juncture, we will continue with his medications. The medications have been rewritten. The patient is aware these medications can become less effective as time goes on. Certain patients have become addicted to opioid medications. He has not shown any signs of addiction. He has been taking these medications for about 20 years. A script for the medications have been provided. The patient will continue with Percocet 10/325 120 tablets per month. He will also continue with MS Contin 30 mg b.i.d. The patient feels that Lyrica is beneficial. He will continue with Lyrica 150 mg b.i.d. We would like to thank you for letting us participate in his care. We hope he continues to improve. By: [id number] Jayne Roman MD /BONNIE
[2020-01-02 12:56] VITALS: BP 167/65
--- NOTE | 2020-01-02 13:10 | NUR ---
Pain Clinic Assessment: 1. History of Osteoarthritis: CIRILO SHOULDERS CIRILO HIPS History of Rheumatoid Arthritis: Not Applicable 2. Height: 5 ft. 9 in. 175.3 cm. Weight: 166.4 lb. oz. 75.479 kg. Patient's BMI: 24.6 3. Vital Signs: BP: 167/65 Pulse: 55 Resp: 14 Temp: 02 Sat: 100 ECG Mon: 4. Pain Intensity: 3 5. Fall Risk: Dizziness: N Needs help standing or walking: N Fallen in the last 3 months: N Fall risk comments: 6. Patient on Blood Thinner: None 7. History of Hypertension: Y 8. Opioid Therapy greater than 6 weeks: Y Opiate Contract Signed: 09/13/17 9. Risk Assessment Tool Provided: LOW-3 10. Functional Assessment Tool: 11. Recreational Drug Use: Never Drug Type: Tobacco Use: Current Every Day Smoker Tobacco Type: Amount or Packs/day: How Many Years: Alcohol Use: No Frequency: Quant:
== END ==
LOC: PAIN 06:49
PROVIDERS: ATTEND Anesthesiology Pain Medicine
DX: M25.551 Pain in right hip (principal); F11.20 Opioid dependence, uncomplicated; Z88.8 Allergy status to other drugs, medicaments and biological substances; Z79.899 Other long term (current) drug therapy

== ENCOUNTER → 2020-03-01 | Outpatient (CLI) | payer OTHER ==
[~2020-03-01] VITALS: Ht 175.3 cm; Wt 76.9 kg
[2020-03-01 12:53] VITALS: BP 181/72
--- NOTE | 2020-03-01 13:07 | NUR ---
Pain Clinic Assessment: 1. History of Osteoarthritis: CIRILO SHOULDERS CIRILO HIPS History of Rheumatoid Arthritis: Not Applicable 2. Height: 5 ft. 9 in. 175.3 cm. Weight: 169.6 lb. oz. 76.930 kg. Patient's BMI: 25.0 3. Vital Signs: BP: 181/72 Pulse: 60 Resp: 20 Temp: 02 Sat: 98 ECG Mon: 4. Pain Intensity: 4 5. Fall Risk: Dizziness: N Needs help standing or walking: N Fallen in the last 3 months: N Fall risk comments: 6. Patient on Blood Thinner: None 7. History of Hypertension: Y 8. Opioid Therapy greater than 6 weeks: Y Opiate Contract Signed: 09/13/17 9. Risk Assessment Tool Provided: LOW-3 10. Functional Assessment Tool: 11. Recreational Drug Use: Never Drug Type: Tobacco Use: Current Every Day Smoker Tobacco Type: Amount or Packs/day: 1/2 PACK How Many Years: Alcohol Use: No Frequency: Quant:
--- NOTE | 2020-03-02 07:59 | HPC ---
[facility] [place] [address] PAIN MANAGEMENT CONSULTATION Name: SHERYL VALLADARES Room #: REG RITAFlores Crystal#: [id number] Admission: 03/01/20 Attend Phys: Chelsie uLz Discharge: Date of : 54 Report #: [id number] THIS REPORT FOR: cc: Sheryl Shepherd James R. DO Hocker, Amanda CNS ~ DATE OF SERVICE: 03/01/2020 CHIEF COMPLAINT: Chronic right hip pain. HISTORY OF PRESENT ILLNESS: This is a pleasant 70-year-old gentleman who returns to the pain clinic today for refill of his medications. The patient reports taking his last morphine and Percocet pills on Sunday. He has started to go through withdrawal symptoms. He feels very shaky and jittery. His blood pressure is slightly elevated. He denies any nausea, vomiting or diarrhea at this time. He has failed to make a timely appointment for several times recently, stating he forgets that he has no more prescriptions at the pharmacy since they are sent electronically and unsure when he needs to return, so therefore he runs out of medicines when he believes he has another prescription at the pharmacy. Today, the patient is reporting a pain score of 4/10 in his lower back that does radiate down his leg. It is an aching tenderness with occasional numbness and tingly sensation, worse with standing and lifting. He does continue to work on [employer] and is physically active and outside. This does increase his pain. He believes after work, taking his medication and a hot bath and using a heating pad have been beneficial. He denies any daytime somnolence or constipation as a result of his medication. ALLERGIES: PREDNISONE, HYDROMORPHONE. CURRENT LIST OF MEDICATIONS: Morphine sulfate 30 mg b.i.d., aspirin, Bystolic, oxycodone 10/325, Glucophage, Lipitor, Amaryl, quinapril and Lyrica. PQRS: 1. He does have arthritic changes in his hips and shoulders. Denies any rheumatoid arthritis. 2. Height is 5 feet 9 inches, weight is 169, BMI is 25. 3. Vital signs: Blood pressure 181/72, pulse is 60, respirations 20, oxygen sat is 98%. 4. Pain score is 4/10. 5. Denies dizziness, does not need help walking or standing, has not fallen in the last 3 months. 6. The patient is not on any blood thinners, but does take medicine for hypertension. 7. Opioid therapy is greater than 6 weeks; therefore, an opioid signed contract is on the chart. Risk assessment is low. Functional assessment is . [address] [address] PAIN MANAGEMENT CONSULTATION Name: SHERYL VALLADARES Room #: REG CLFlores Crystal#: [id number] Admission: 03/01/20 Attend Phys: Chelsie Luz Discharge: Date of : 54 Report #: [id number] 8. Recreational drug use, he denies. He is a current smoker of half a pack of cigarettes a day and does not drink alcohol. According to the prescription monitoring system, he should have run out of his medicines on Sunday. He reports to being out on Sunday. His morphine mEq according to the CDC guidelines is 120. We do see him on an every 2-month basis and he has been stable on these meds for quite some time and we have decreased him significantly in the past 2 years. PHYSICAL EXAMINATION: GENERAL: This is an alert and orientated, well-developed, well-nourished white gentleman who appears his stated age, placing his current pain score at 4/10. His affect is appropriate and his speech is fluent. HEENT: Normocephalic, atraumatic. Extraocular eye muscles are intact. He is wearing a mask. NECK: Without adenopathy or JVD. MUSCULOSKELETAL: His upper and lower extremity strength is symmetrical at 5/5. He has discomfort in his lower portion of the lumbar spine that radiates into his hips bilaterally and ongoing bilateral shoulder discomfort that increases with movement. IMPRESSION: 1. Chronic intractable back pain. 2. Osteoarthritis, status post hip replacement. 3. Neuropathic pain with diabetic neuropathy and post-laminectomy syndrome. 4. Lumbar radiculopathy. 5. Management of high risk medications under terms of written opioid agreement. PLAN: 1. We discussed treatment options with the patient today. We discussed ways to enable him to remember to make an appointment in a timely fashion. On her discharge papers, we did write 04/05/2020 to call for an appointment for 04/23/2020, this will be several days before he should be due to be out of his medications. Hopefully, he will remember to transcribe this on to his calendar at home, enabling him to make a timely appointment and not go through withdrawal symptoms again. 2. We will have Dr. Chavez Berrios send his MS Contin 30 mg b.i.d. for today and 4-week supply as well as his oxycodone 10/325 q.i.d. and Lyrica 150 mg b.i.d. #60 with 1 refill. These will all be sent electronically to his pharmacy. 3. The patient is seen in collaboration today with Dr. Chavez Berrios. <ELECTRONICALLY SIGNED> By: Chelsie Luz 03/02/20 0759 [id number] Chelsie Luz /nt
== END ==
LOC: PAIN 12:01
PROVIDERS: ATTEND Clinical Nurse Specialist Adult Health
DX: M54.16 Radiculopathy, lumbar region (principal); M19.90 Unspecified osteoarthritis, unspecified site; G89.4 Chronic pain syndrome; Z79.891 Long term (current) use of opiate analgesic

== ENCOUNTER → 2020-03-24 | Outpatient (CLI) | payer OTHER | LOC: SJCVCIMAG 07:44 | PROVIDERS: ATTEND Internal Medicine Cardiovascular Disease | DX: I08.3 Combined rheumatic disorders of mitral, aortic and tricuspid valves (principal); I11.9 Hypertensive heart disease without heart failure; I25.10 Atherosclerotic heart disease of native coronary artery without angina pectoris; E78.5 Hyperlipidemia, unspecified; E11.9 Type 2 diabetes mellitus without complications; F17.200 Nicotine dependence, unspecified, uncomplicated; Z79.82 Long term (current) use of aspirin; Z79.899 Other long term (current) drug therapy ==

== ENCOUNTER 2020-04-03 08:49 | Inpatient (IN) | payer OTHER ==
[~2020-04-03] VITALS: Ht 175.3 cm; Wt 76.2 kg
[2020-04-03 08:49] VITALS: BP 165/63
[2020-04-03 09:41] LABS: HEMATOCRIT 36.9 % (42.0-52.0); HEMOGLOBIN 12.8 gm/dL (14.0-18.0); MCH 32.8 pg (26.0-34.0); MCHC 34.6 g/dL (28.0-37.0); MCV 94.7 fL (80.0-100.0); PLATELET COUNT 229 thou/uL (150-400); RBC 3.89 mil/uL (4.50-6.00); RDW 13.7 % (10.5-14.5); WBC 6.7 thou/uL (4.0-11.0)
[2020-04-03 09:51] LABS: CALCIUM 8.8 mg/dL (8.5-10.1); POTASSIUM 4.9 mmol/L (3.5-5.1)
[2020-04-03 10:00] LABS: TROPONIN-I 0.06 ng/mL (<0.06)
[2020-04-03 10:57] LABS: ABSOLUTE NEUTROPHILS 5.8 thou/uL (1.4-8.2)
[2020-04-03 10:58] LABS: ANISOCYTOSIS SLIGHT; OVALOCYTES FEW
[2020-04-03 14:11] VITALS: BP 173/61
[2020-04-03 15:25] VITALS: BP 171/70
[2020-04-03 15:45] VITALS: BP 186/55
[2020-04-03] MEDS ORDERED: GLIMEPIRIDE4 MG PO (16:50)
[2020-04-03] MEDS ORDERED: BYSTOLIC10 MG PO (16:50)
[2020-04-03] MEDS ORDERED: DORYX MPC120 MG PO (16:54)
[2020-04-03] MEDS ORDERED: IVERMECTIN3 MG PO (16:56)
[2020-04-03] MEDS ORDERED: DEXAMETHASONE 44 M1 PO (16:56)
[2020-04-03] MEDS ORDERED: ALLERGY RELIEF25 MG PO (16:59)
[2020-04-03] MEDS ORDERED: SYMBICORT160 MCG/4. INH (17:00)
[2020-04-03] MEDS ORDERED: PROAIR HFA8.5 GM INH (17:01)
[2020-04-03 18:05] VITALS: BP 157/43
[2020-04-03 20:00] VITALS: BP 172/52
--- NOTE | 2020-04-03 20:33 | NUR ---
PT. ARRIVED AT FLOOR CLOSE TO 1500; PT AOX4; NO C/O PAIN; SBP 180s; SB ON THE MONITOR; NISTATIN PATCH OVER CHEST; PER PT. TOOK SOME PRN PAIN MEDICATION FROM HOME; PT. EDUCATED ABOUT NOT TAKING MEDICATION FROM HOME WHILE AT THE HOSPITAL; HOME MEDICATIONS SENT TO PHARMACY; HOME MEDS UPDATED; EDUCATED CALLING IF FEELING CP; [facility]; EDUCATED ABOUT FALL PREVENTIONS AND POC; [facility]; ADMISSION PERFORMED; ASSESSMENT CHARGED; FOLLOWING POC; PASSED ON REPORT;
[2020-04-04] VITALS (7 sets, daily range): BP systolic 142–186; BP diastolic 41–64
--- NOTE | 2020-04-04 04:00 | NUR ---
PT IS ALERT AND ORIENTED X4. LUNGS ARE CLEAR ON ROOM AIR. HAS A CARDIAC HISTORY AND CARDIOLOGY ON BOARD. DENIES ANY CHEST PAIN AT TIMES BUT THEN REPORTS CHEST PAIN. REMAINS NPO. PER ORDER. UP WITH ASSISTANCE PER NURSING. ABDOMEN IS ROUND BOWEL SOUNDS ACTIVE X4. CALL LIGHT WITHIN REACH TO CALL IF NEEDS NURSING ASSISTANCE.
[2020-04-04 12:34] LABS: CHOLESTEROL 118 mg/dL (<200); HDL CHOLESTEROL 50 mg/dL (>40); LDL CHOLESTEROL 33 mg/dL (<100); TC:HDL 2.4 Ratio (Not establshd); TRIGLYCERIDE 177 mg/dL (<150); VLDL 35 mg/dL (<40)
--- NOTE | 2020-04-04 12:49 | EKG ---
[place] [address] [place] [address] ELECTROCARDIOGRAM REPORT Name: SHERYL VALLADARES Room #: 208-P ADM IN M.R.#: [id number] Admission: 04/03/20 Attend Phys: Samara Gómez Discharge: Date of : 54 Report #: [id number] [facility] Test Date: 2020-04-04 Test Time: 09:11:22 Pat Name: SHERYL VALLADARES Department: Room: 208 P Gender: M Ssrs Report Developer: JEREMY : 1950 Requested By: Stoney Baer Order Number: [id number] MD: Stoney Baer Measurements Intervals [place] Rate: 56 P: -72 [place]: 183 QRS: 4 QRSD: 96 T: -76 QT: 500 QTc: 483 Interpretive Statements Sinus or ectopic atrial rhythm Posterior infarct, old Abnormal T, consider ischemia, diffuse leads Compared to ECG 09/12/2017 13:00:50 T wave abnormality is more prominent Electronically Signed On 04-04-2020 12:49:37 GASTROENTEROLOGY NURSE PRACTITIONER by Stoney Baer [email or web address] <ELECTRONICALLY SIGNED> By: Stoney Baer MD, [facility] 04/04/20 1249 0 0 Stoney Baer MD, [facility] /EPI
--- NOTE | 2020-04-04 21:01 | NUR ---
RECEIVED PT'S CARE AROUND 0720; PT. ON BED; RESTING WITH EYES CLOSED; EQUAL CHEST RISING; SB ON THE MONITOR; DURING AM ASSESSMENT PT. AOX4; AM MEDICATION GIVEN; C/O "SOME" CP AND HEADACHE; SCHEDULED MEDICATION GIVEN; EDUCATED ABOUT FALL PRECAUTIONS; EDUCATED ABOUT NEW AM MEDICATIONS; ELEVATED BP; SB ON THE MONITOR; JUSTINE PREPARATION OPERATOR ORTHOPEDIC TECHNICIAN NOTIFIED; ORDERS RECEIVED; HOLD NOVIBOLOL; MONITORING; REASSESSMENT PT. RESTING WITH EYES CLOSED; EDUCATED ABOUT CAFFEINE INTAKE AND POSSIBLE EFFECTS ON BP; ST. UNDERSTANDING; SON AT THE BED SIDE; EDUCATED ABOUT VISITOR HOURS AND POC DURING 04/05/20; ST. UNDERSTANDING; PRN PAIN MEDICATION GIVEN; EDUCATED ABOUT REQUESTING WHEN REQUIRED; ST. UNDERSTANDING; ASSESSMENT CHARGED; FOLLOWING POC; PASSED ON REPORT;
[2020-04-05 02:05] LABS: GLYCOHEMOGLOBIN (HGB A1C) 6.4 % (4.8-5.6)
[2020-04-05 04:30] VITALS: BP 128/51
--- NOTE | 2020-04-05 05:31 | NUR ---
PATIENTS CARES WERE ASSUMED AT SHIFT CHANGE. PATIENT WAS ASSESSED AND MEDS WERE PASSED. PATIENT IS TO HAVE A CARDIAC CATH THIS MORNIING. PATIENT HAS SLEPT MOST OF THIS SHIFT. HOURLY ROUNDS WERE DONE. THE BED IS IN A LOW AND LOCKED POSITION
[2020-04-05 07:25] VITALS: BP 140/61
[2020-04-05 07:55] VITALS: BP 140/61
[2020-04-05] MEDS ORDERED: QUINAPRIL 20 MG20 MG PO (08:58)
[2020-04-05] MEDS ORDERED: LISINOPRIL20 MG PO (10:08)
--- NOTE | 2020-04-05 10:08 | CATHLAB ---
[facility] [address] [place] [address] INVASIVE PROCEDURE REPORT Name: BLAINESHERYL BUTLER Room #: 208-P ADM IN M.R.#: [id number] Admission: 04/03/20 Attend Phys: Samara Vasquez Dalia Discharge: Date of : 54 Report #: [id number] THIS REPORT FOR: cc: Sheryl Shepherd James R. DO Lundgren, Craig H. MD [facility] ~ APPROVED REPORT Study performed: 04/05/2020 07:50:38 Patient Details Patient Status: In-Patient Room #: The patient is a 70 year-old male Event Personnel Stoney Baer [employer] Psychiatrist, Earline Medina RN RN, Candace Simon RN RN, Nic Peña RTR Scrub, Reta Culver RTR Monitor Procedures Performed Art Access - R femoral artery* Coronaries Angiography and Bypass Grafts 262672 CORCABG Supravalvular Aortography Injection 3839951 ISVA 82519 Initial Mod Sed Same Phys/QHP Gr5y 035019 66488 Mod Sed Same Phys/QHP Ea 669053 Hemostasis w/ Mynx Indication Valvular heart disease, Chest pain Previous Procedures/Diagnoses Previous CABG Procedure Narrative The patient was brought electively to the Cardiac Catheterization Laboratory and was prepped and draped in a sterile manner. The Right Groin^ was infiltrated with 1% Lidocaine subcutaneous anesthesia. A PINNACLE 6FR Sheath #[id number] sheath was inserted into the RFA^. Coronary angiography was performed using coronary diagnostic catheters. The right coronary system was accessed and visualized with a JR4 catheter. The left coronary system was accessed and visualized with a JL4 catheter. The left ventricle was accessed and visualized with a PIGTAIL catheter. An aortogram of the ascending aorta was performed. Closure device was deployed with a 6 Fr MYNXGRIP 6/7F. The patient tolerated the procedure well and there were no complications associated with the procedure. There was no hematoma. [facility] [address] [place] [address] INVASIVE PROCEDURE REPORT Name: SHERYL VALLADARES Room #: 208-P [facility] IN .R.#: [id number] Admission: 04/03/20 Attend Phys: Samara Tong Discharge: Date of : 54 Report #: [id number] Intraoperative Conscious Sedation Sedation start time: 08 Case end Time: 853 Fluoro Time: 15.20 minutes Dose: DAP 76308.00 cGycm2 1789 mGy Contrast Type and Amount: Omnipaque 210 ml Coronary Angiography The patient's coronary anatomy is left dominant. Hughes Artery Percent Stenosis Grafts (Complete if Previous CABG=Yes: Percent Stenosis) Proximal aortography demonstrated calcified and stenotic aortic valve. No aneurysmal dilatation. No dissection. Moderately severe to severe aortic insufficiency. Severe aortic stenosis by echocardiography. Diagnostic Cath Left Main Critical 99% proximal left main stenosis LAD Proximal LAD occlusion Normal left internal mammary anastomosis to the proximal portion of the LAD. Widely patent distal anastomotic site Diagonal 1 Severe 90% proximal diagonal 1 stenosis. Small vessel Diagonal 2 Mild ostial D2 plaquing unprotected by the mammary flow or antegrade proximal LAD flow Very small vessel. Circumflex 100% proximal circumflex stenosis Patent vein graft, sequentially to the OM1 and OM 2. No evidence of ostial SVG stent stenosis L PDA Mild posterior descending plaquing Right Coronary Small, nondominant right coronary with minimal proximal plaquing Left Ventriculography The left ventricle is normal in size with normal contractility. The left ventricular ejection fraction is estimated to be 60%. Ventriculography based on contrast appearance during aortogram due to aortic insufficiency Conclusion 1. Severe multivessel coronary disease. EF 60% 2. Patent left internal mammary to the LAD, patent sequential vein graft to the first and second marginal branches [facility] [address] [place] [address] INVASIVE PROCEDURE REPORT Name: SHERYL VALLADARES Room #: 208-P [facility] IN .R.#: [id number] Admission: 04/03/20 Attend Phys: Samara Tong Discharge: Date of : 54 Report #: [id number] 3. Severe aortic stenosis. Moderately severe to severe aortic insufficiency. <ELECTRONICALLY SIGNED> By: Stoney Baer MD, [facility] 04/05/20 1008 07 07 Stoney Baer MD, FACC /INF
--- NOTE | 2020-04-05 11:12 | EKG ---
[address] [place] [address] ELECTROCARDIOGRAM REPORT Name: SHERYL VALLADARES Room #: 208-P ADM IN M.R.#: [id number] Admission: 04/03/20 Attend Phys: Samraa Gómez Discharge: Date of : 54 Report #: [id number] [facility] ED Test Date: 2020-04-03 Test Time: 08:55:19 Pat Name: SHERYL VALLADARES Department: Room: 208 Gender: M Card Placer: JCHAIREZ : 1950 Requested By: Iveth Justin Order Number: [id number] MD: Hari Ojeda Measurements Intervals [place] Rate: 59 P: -76 [place]: 174 QRS: 0 QRSD: 92 T: 253 QT: 435 QTc: 431 Interpretive Statements Ectopic atrial rhythm Abnormal R-wave progression, early transition Probable LVH with secondary repol abnrm Compared to ECG 09/12/2017 13:00:50 T-wave abnormality no longer present Myocardial infarct finding no longer present Electronically Signed On 04-05-2020 11:12:09 DRYERMAN/WOMAN by Hari Ojeda [email or web address] <ELECTRONICALLY SIGNED> By: Hari Ojeda MD, [facility] 04/05/20 1112 0855 0855 Hari Ojeda MD, [facility] /EPI
[2020-04-05 12:01] VITALS: BP 140/61
--- NOTE | 2020-04-05 13:43 | NUR ---
PT CARE ASSUMED AT 0700. ASSESSMENTS CHARTED. MEDICATIONS CHARTED. LAC IV. URINAL. SINUS RHYTHM. CARDIAC CATH; RT GROIN, MYNX CLOSURE; NO INTERVENTIONS; VALVE ISSUE. HEMOSTASIS 0854, BEDREST UNTIL 1154. POST CATH VITALS INFORMATION LOST MACHINE WAS PLACED ON A DIFFERENT PATIENT.
== END 2020-04-05 13:21 | disposition home or self-care (01) | DRG 281 ==
LOC: ER 08:49 → 2N 11:44 → EROBS 11:44 → 2N 15:25
PROVIDERS: Emergency Medicine; Internal Medicine; ADMIT Hospitalist; ATTEND Hospitalist
DX: I21.4 Non-ST elevation (NSTEMI) myocardial infarction (principal); E87.1 Hypo-osmolality and hyponatremia; I25.110 Atherosclerotic heart disease of native coronary artery with unstable angina pectoris; Z20.822 Contact with and (suspected) exposure to COVID-19; Z96.642 Presence of left artificial hip joint; E11.9 Type 2 diabetes mellitus without complications; E78.00 Pure hypercholesterolemia, unspecified; I10 Essential (primary) hypertension; F17.210 Nicotine dependence, cigarettes, uncomplicated; E78.5 Hyperlipidemia, unspecified; I35.2 Nonrheumatic aortic (valve) stenosis with insufficiency; Z95.5 Presence of coronary angioplasty implant and graft; I25.2 Old myocardial infarction; Z95.1 Presence of aortocoronary bypass graft; Z86.14 Personal history of Methicillin resistant Staphylococcus aureus infection; Z79.899 Other long term (current) drug therapy; Z88.8 Allergy status to other drugs, medicaments and biological substances; Z71.6 Tobacco abuse counseling
CPT/HCPCS: 10081

== ENCOUNTER → 2020-05-12 | Outpatient (CLI) | payer OTHER ==
[~2020-05-12] VITALS: Ht 175.3 cm; Wt 76.3 kg
[~2020-05-12] MED LIST changes: +ACCUPRIL5 MG PO; +ALLERGY RELIEF25 MG PO; +ASPIR 8181 MG PO; +DEXAMETHASONE 44 M1 PO; +DORYX MPC120 MG PO; +DOXYCYCLINE HY100 MG PO; +GLIMEPIRIDE4 MG PO; +IVERMECTIN3 MG PO; +LASIX 40 MG TAB40 MG PO; +LISINOPRIL20 MG PO; +LOPRESSOR50 MG PO; +MAPAP500 MG PO; +MIRALAX17 GM PO; +MUCINEX600 MG PO; +NICOTINE TRANSD14 M1 TRANSDERM; +NITROSTAT0.4 M1 SUBLING; +POTASSIUM20 PO; +PROAIR HFA8.5 GM INH; +SYMBICORT160 MCG/4. INH
[2020-05-12 09:30] VITALS: BP 130/84
--- NOTE | 2020-05-12 09:44 | NUR ---
Pain Clinic Assessment: 1. History of Osteoarthritis: CIRILO SHOULDERS CIRILO HIPS History of Rheumatoid Arthritis: Not Applicable 2. Height: 5 ft. 9 in. 175.3 cm. Weight: 168.2 lb. oz. 76.295 kg. Patient's BMI: 24.8 3. Vital Signs: BP: 130/84 Pulse: 81 Resp: 14 Temp: 02 Sat: 98 ECG Mon: 4. Pain Intensity: 6 5. Fall Risk: Dizziness: N Needs help standing or walking: N Fallen in the last 3 months: N Fall risk comments: 6. Patient on Blood Thinner: None 7. History of Hypertension: Y 8. Opioid Therapy greater than 6 weeks: Y Opiate Contract Signed: 09/13/17 9. Risk Assessment Tool Provided: LOW-3 10. Functional Assessment Tool: 11. Recreational Drug Use: Never Drug Type: Tobacco Use: Former Smoker Tobacco Type: Amount or Packs/day: How Many Years: Alcohol Use: Past use Frequency: Quant:
--- NOTE | 2020-05-12 13:45 | HPC ---
[facility] [place] [address] PAIN MANAGEMENT CONSULTATION Name: SHERYL VALLADARES Room #: REG ESTELA Crystal#: [id number] Admission: 05/12/20 Attend Phys: Chelsie Luz Discharge: Date of : 54 Report #: [id number] THIS REPORT FOR: cc: Sheryl Shepherd James R. DO Hocker, Amanda CNS ~ DATE OF SERVICE: 05/12/2020 CHIEF COMPLAINT: Chronic right hip pain and low back pain. HISTORY OF PRESENT ILLNESS: This is a pleasant 70-year-old gentleman who returns to the pain clinic today for refill of his medications. I had noted in the chart that he had recently been hospitalized here for cardiac issues. The patient reports he was recently discharged from [facility] where he underwent an aortic valve replacement. Unfortunately, they were planning on doing a minimally invasive transcatheter replacement, but they did have to open him up on his old CABG scar, therefore requiring him to be in the hospital greater than a week. Today, patient still continues to complain of some chest discomfort. He has gone to the Emergency Room for this discomfort. They have ruled out pneumonia, though he has been placed on an antibiotic currently as well as steroids. He reports having a significant cough with phlegm. He is also reporting that his blood sugars are elevated, which he expects from the prednisone. He will start cardiac rehab at [facility] next week for his rehabilitation. The patient reports ongoing pain in his low back and left leg, rating it a 6/10 as well as neuropathy symptoms in his feet and then his chest pain along his incisional site. It is a stabbing, tender, and occasionally numbness and tingly sensation that he experiences. He reports his pain is worse with prolonged standing and lifting. 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 He reports he will be off until at least the end of June. He states that the medications as well as heat in a recliner are beneficial for him. Today, he is requesting refills of his medication, which he is past due since he was in the hospital. ALLERGIES: PREDNISONE, HYDROMORPHONE. CURRENT LIST OF MEDICATIONS: Doxycycline, lisinopril, albuterol, Symbicort, glimepiride, Lyrica, oxycodone 10/325, MS Contin 30 mg b.i.d., aspirin, Bystolic, Glucophage, and Lipitor. PQRS: 1. He has osteoarthritis in his hips and shoulders. Denies any rheumatoid arthritis. 2. Height is 5 feet 9 inches, weight is 168, BMI is 24. 3. Vital signs 130/84, pulse is 81, respirations 14, and oxygen sat is 98%. [address] [address] PAIN MANAGEMENT CONSULTATION Name: SHERYL VALLADARES Room #: REG [facility].#: [id number] Admission: 05/12/20 Attend Phys: Chelsie Luz Discharge: Date of : 54 Report #: [id number] 4. Pain score 6/10. 5. Denies dizziness, does not need assistance with ambulation. Has not fallen in the last 3 months. 6. The patient is not on any blood thinners, but does take medicine for hypertension. 7. Opioid therapy is greater than 6 weeks; therefore, an opioid signed contract is on the chart. Risk assessment is low. Functional assessment is 29/70. 8. Recreational drug use, he denies. He is a former smoker and does not drink alcohol. According to the prescription monitoring system, he is past due to fill his opioids from us. He did receive a short prescription for oxycodone [address] [facility] after his discharge. His morphine mEq is 120. PHYSICAL EXAMINATION: GENERAL: This is alert and orientated 70-year-old gentleman, slightly pale today, placing his current pain score at 6/10. His affect is appropriate. He is a good historian. HEENT: Normocephalic, atraumatic. Extraocular eye muscles are intact. He is wearing a mask. NECK: Without adenopathy or JVD. CHEST: Well-healed scar from recent open heart surgery. No bruises noted. MUSCULOSKELETAL: He has tenderness in his lumbar region of his spine that radiates into his hips bilaterally. His upper and lower extremity strength is symmetrical at 5/5. He has an antalgic gait. IMPRESSION: 1. Chronic intractable back pain. 2. Osteoarthritis, status post hip surgery. 3. Recent aortic valve replacement. 4. Neuropathic pain with diabetic neuropathy and post-laminectomy syndrome. 5. Lumbar radiculopathy. 6. Management of high risk medications under terms of written opioid agreement. We reviewed the fact that opiate medications are being used to provide analgesia adequate to support activities of daily living, not attempting to achieve a specific pain score on the 0-10 Visual Analog Scale. The current opiate medications are providing sufficient analgesia to allow the patient to participate in activities of daily living. The patient is not exhibiting any aberrant behavior suggestive of drug diversion. The patient is not having any adverse reactions to medications. The patient is not suffering from daytime somnolence or mental acuity changes. The patient is managing opiate-induced constipation with appropriate bfim-yqe-wwlgglr agents and dietary considerations. The patient was counseled on concern for caution with operating a motor vehicle while using opiate medications. [facility] [address] [place] [address] PAIN MANAGEMENT CONSULTATION Name: SHERYL VALLADARES [id number] Admission: 05/12/20 Attend Phys: Chelsie Luz Discharge: Date of : 54 Report #: [id number] A physical exam was performed and the patient's functional status was evaluated. All patients with back pain were advised against the bed rest greater than 4 days and were advised to return to normal activities. Pain score assessment was noted and the treatment plan was reviewed with the patient. All current medications, both prescribed and OTC were reviewed and reconciled on the electronic medical record. Tobacco screening was accomplished and smoking cessation was advised when indicated. BMI was noted and diet/exercise modification was recommended for all patients following outside normal parameters. I reviewed with the patient today their responsibilities to safeguard prescription medications, reviewed their responsibility to utilize medications only as prescribed by the physician. They are to seek and receive pain medications only from 1 physician group ( [facility]). They are to use 1 pharmacy and keep the clinic informed if they change pharmacies. Their responsibilities include making followup visits in a timely fashion and to avoid abrupt discontinuation of medication usage. Their responsibilities further include bringing their medications (bottles from the pharmacy with residual pills) to the visit for possible confirmation of pill counts and the patient understands it is their responsibility to submit to random drug screens to ensure both that the medications prescribed are present, and that no other controlled substances are present. All prescriptions provided today were generated electronically. PLAN: 1. We discussed treatment options with the patient today. We will renew his MS Contin 30 mg twice a day and his oxycodone 10/325 up to 4 times a day. This will be sent electronically by Dr. Roman for today and 4-week supply. I reminded him that the oxycodone that he received post-surgery was not as strong as his current medication. He reports it was not effective in helping control his pain, but he did take all of that medication due to being out of his oxycodone. 2. We did discuss splinting his chest when he is coughing. He has been having a productive cough per his report, but no cough present today when I am visiting with him. I explained that splinting will help decrease some of his pain, also encourage liquids, especially water to help liquify his secretions that he is expectorating. 3. We did discuss that his blood sugars have been elevated with his prednisone use. Encouraging him to watch his diet very closely. If it does not return to normal levels after his prednisone use, to call his primary care doctor. Currently, he reports running 350s. 4. The patient will return in 2 months that should be just prior for him [address] [address] PAIN MANAGEMENT CONSULTATION Name: SHERYL VALLADARES Room #: REG ESTELA Crystal#: [id number] Admission: 05/12/20 Attend Phys: Chelsie Luz Discharge: Date of : 54 Report #: [id number] returning to work and finishing his cardiac rehabilitation. 5. The patient is seen in collaboration with Dr. James Roman today. <ELECTRONICALLY SIGNED> By: Chelsie Luz 05/12/20 1345 1049 1138 Chelsie Luz /nt
== END ==
LOC: PAIN 06:50
PROVIDERS: ATTEND Clinical Nurse Specialist Adult Health
DX: M54.16 Radiculopathy, lumbar region (principal); M25.551 Pain in right hip; G89.29 Other chronic pain; F11.20 Opioid dependence, uncomplicated; G62.9 Polyneuropathy, unspecified; E11.40 Type 2 diabetes mellitus with diabetic neuropathy, unspecified; Z96.641 Presence of right artificial hip joint; Z95.2 Presence of prosthetic heart valve; Z88.8 Allergy status to other drugs, medicaments and biological substances; Z79.899 Other long term (current) drug therapy

== ENCOUNTER → 2020-07-02 | Outpatient (CLI) | payer OTHER ==
[~2020-07-02] VITALS: Ht 175.3 cm; Wt 76.0 kg
[2020-07-02 14:03] VITALS: BP 133/62
--- NOTE | 2020-07-02 14:16 | NUR ---
Pain Clinic Assessment: 1. History of Osteoarthritis: CIRILO SHOULDERS CIRILO HIPS History of Rheumatoid Arthritis: Not Applicable 2. Height: 5 ft. 9 in. 175.3 cm. Weight: 167.6 lb. oz. 76.023 kg. Patient's BMI: 24.7 3. Vital Signs: BP: 133/62 Pulse: 70 Resp: 14 Temp: 02 Sat: 97 ECG Mon: 4. Pain Intensity: 3 5. Fall Risk: Dizziness: N Needs help standing or walking: N Fallen in the last 3 months: N Fall risk comments: 6. Patient on Blood Thinner: None 7. History of Hypertension: Y 8. Opioid Therapy greater than 6 weeks: Y Opiate Contract Signed: 09/13/17 9. Risk Assessment Tool Provided: LOW-3 10. Functional Assessment Tool: 11. Recreational Drug Use: Never Drug Type: Tobacco Use: Former Smoker Tobacco Type: Amount or Packs/day: How Many Years: Alcohol Use: Past use Frequency: Quant:
== END ==
LOC: PAIN 13:39
PROVIDERS: ATTEND Anesthesiology Pain Medicine
DX: G89.4 Chronic pain syndrome (principal); E11.40 Type 2 diabetes mellitus with diabetic neuropathy, unspecified; M19.90 Unspecified osteoarthritis, unspecified site; M54.16 Radiculopathy, lumbar region; M96.1 Postlaminectomy syndrome, not elsewhere classified; Z95.2 Presence of prosthetic heart valve; Z79.891 Long term (current) use of opiate analgesic; Z79.899 Other long term (current) drug therapy

== ENCOUNTER 2020-08-12 11:25 | Observation (INO) | payer OTHER ==
[~2020-08-12] VITALS: Ht 175.3 cm; Wt 77.1 kg
[2020-08-12 11:31] VITALS: BP 157/77
[2020-08-12 11:57] LABS: ABSOLUTE NEUTROPHILS 3.4 thou/uL (1.4-8.2); BASOPHILS 1.2 % (0.0-2.0); EOSINOPHILS 6.1 % (0.0-3.0); HEMATOCRIT 36.4 % (42.0-52.0); HEMOGLOBIN 11.9 gm/dL (14.0-18.0); LYMPHOCYTES 28.1 % (24.0-44.0); MCH 27.6 pg (26.0-34.0); MCHC 32.7 g/dL (28.0-37.0); MCV 84.6 fL (80.0-100.0); PLATELET COUNT 230 thou/uL (150-400); POLYS 56.6 % (36.0-66.0); RDW 15.2 % (10.5-14.5); WBC 6.1 thou/uL (4.0-11.0)
[2020-08-12 12:07] LABS: CALCIUM 8.8 mg/dL (8.5-10.1); CREATININE 0.9 mg/dL (0.7-1.3); POTASSIUM 4.1 mmol/L (3.5-5.1)
[2020-08-12 12:13] LABS: ALBUMIN 3.8 g/dL (3.4-5.0); TOTAL BILIRUBIN 0.3 mg/dL (0.2-1.0); TOTAL PROTEIN 6.8 g/dL (6.4-8.2)
[2020-08-12] MEDS ORDERED: METFORMIN HCL500 M3 PO (12:16)
[2020-08-12 12:26] LABS: MAGNESIUM 1.8 mg/dL (1.8-2.4); TROPONIN-I <0.06 ng/mL (<0.06)
--- NOTE | 2020-08-12 13:08 | NUR ---
HOSPITALIST AT BEDSIDE AT THIS TIME
[2020-08-12 13:39] LABS: CHOLESTEROL 126 mg/dL (<200); HDL CHOLESTEROL 41 mg/dL (>40); LDL CHOLESTEROL 66 mg/dL (<100); TC:HDL 3.1 Ratio (Not establshd); TRIGLYCERIDE 97 mg/dL (<150); VLDL 19 mg/dL (<40)
[2020-08-12 13:49] VITALS: BP 185/80
--- NOTE | 2020-08-12 14:37 | NUR ---
REPORT GIVEN TO MAVIS EASTMAN AT THIS TIME. DENIES FURTHER QUESTIONS. PT READY FOR TRANSFER TO FLOOR AFTER HE RETURNS FROM MRI
--- NOTE | 2020-08-12 14:41 | NUR ---
PT ORIENTED TO ROOM AND UNIT, BED LOW AND LOCKED, SIDE RAILS UP X3, CALL LIGHT IN REACH, TELE APPLIED AND FALL RISK CONTRACT SIGNED. WILL CONTINUE TO ASSESS.
[2020-08-12 14:48] VITALS: BP 185/80
[2020-08-12 17:33] VITALS: BP 198/90
[2020-08-12 19:39] VITALS: BP 189/79
[2020-08-13 00:06] LABS: GLYCOHEMOGLOBIN (HGB A1C) 6.9 % (4.8-5.6)
[2020-08-13 00:20] VITALS: BP 163/86
[2020-08-13 03:57] VITALS: BP 173/86
--- NOTE | 2020-08-13 04:38 | NUR ---
ASSUMED PT CARE AT 1900, PT IS AWAKE, ALERT AND ORIENTEDX4, SR/1DAVB, CHRONIC BACK PAIN, PAIN MEDS RESTARTED AND GIVEN PER ORDERS WITH RELIEF, BS 172 AT HS, REFUSED INSULIN, ASSESSMENTS CHARTED, WALKS STEADY, NO NEEDS AT THIS TIME, CONSULT CALLED TO 5N, WILL CONTINUE MONITOR AND FOLLOW POC
[2020-08-13 05:01] LABS: ABSOLUTE NEUTROPHILS 1.4 thou/uL (1.4-8.2); BASOPHILS 1.1 % (0.0-2.0); EOSINOPHILS 6.9 % (0.0-3.0); HEMATOCRIT 37.3 % (42.0-52.0); HEMOGLOBIN 12.2 gm/dL (14.0-18.0); LYMPHOCYTES 43.6 % (24.0-44.0); MCH 27.4 pg (26.0-34.0); MCHC 32.8 g/dL (28.0-37.0); MCV 83.8 fL (80.0-100.0); MONOCYTES 10.7 % (1.0-8.0); PLATELET COUNT 208 thou/uL (150-400); POLYS 37.7 % (36.0-66.0); RBC 4.45 mil/uL (4.50-6.00); RDW 14.7 % (10.5-14.5); WBC 3.8 thou/uL (4.0-11.0)
[2020-08-13 05:16] LABS: CALCIUM 9.2 mg/dL (8.5-10.1); CREATININE 0.7 mg/dL (0.7-1.3); POTASSIUM 4.2 mmol/L (3.5-5.1)
--- NOTE | 2020-08-13 06:51 | EKG ---
[address] [place] [address] ELECTROCARDIOGRAM REPORT Name: SHERYL VALLADARES Room #: 207-P ADM IN M.R.#: [id number] Admission: 08/12/20 Attend Phys: Syed Berkowitz MD Discharge: Date of : 54 Report #: [id number] [facility] ED Test Date: 2020-08-12 Test Time: 12:08:28 Pat Name: SHERYL VALLADARES Department: Room: 207 Gender: M Brand Manager: JCHAICT : 1950 Requested By: Narcisa Houser Order Number: [id number] MD: Hari Ojeda Measurements Intervals [place] Rate: 78 P: 11 MT: 233 QRS: -24 QRSD: 92 T: 66 QT: 414 QTc: 472 Interpretive Statements Sinus rhythm Prolonged MT interval Abnormal R-wave progression, early transition Inferior infarct, old Compared to ECG 04/04/2020 09:11:22 First degree AV block now present Ectopic atrial rhythm no longer present T-wave abnormality no longer present Possible ischemia no longer present Myocardial infarct finding still present Electronically Signed On 08-13-2020 6:51:18 CDT by Hari Ojeda [email or web address] <ELECTRONICALLY SIGNED> By: Hari Ojeda MD, FAC 08/13/20 0651 1208 1208 Hari Ojeda MD, FAC /EPI
--- NOTE | 2020-08-13 06:52 | EKG ---
[address] [address] ELECTROCARDIOGRAM REPORT Name: SHERYL VALLADARES Room #: 207-P ADM IN M.R.#: [id number] Admission: 08/12/20 Attend Phys: Syed Berkowitz MD Discharge: Date of : 54 Report #: [id number] [facility] Test Date: 2020-08-12 Test Time: 15:27:16 Pat Name: SHERYL VALLADARES Department: Room: 207 Gender: M Helper Electrical: [email or web address] : 1950 Requested By: Narcisa Houser Order Number: [id number] MD: Hari Ojeda Measurements Intervals [place] Rate: 74 P: 7 RI: 261 QRS: -25 QRSD: 91 T: 92 QT: 416 QTc: 462 Interpretive Statements Sinus rhythm Prolonged RI interval Abnormal R-wave progression, early transition Inferior infarct, old Baseline wander in lead(s) V2 Compared to ECG 08/12/2020 12:08:28 No significant changes Electronically Signed On 08-13-2020 6:51:59 CDT by Hari Ojeda [email or web address] <ELECTRONICALLY SIGNED> By: Hari Ojeda MD, FAC 08/13/20 0651 1527 1527 Hari Ojeda MD, [facility] /EPI
[2020-08-13 09:49] VITALS: BP 138/91
[2020-08-13 09:55] VITALS: BP 160/88
--- NOTE | 2020-08-13 10:18 | 2DMMODE ---
[facility] [place] [address] 2 D/M-MODE ECHOCARDIOGRAM Name: SHERYL VALLADARES Room #: 207-P ADM IN M.R.#: [id number] Admission: 08/12/20 Attend Phys: ySed Berkowitz MD Discharge: Date of : 54 Report #: [id number] THIS REPORT FOR: cc: Sheryl Shepherd James R. DO Lammoglia, Francisco J. MD ~ APPROVED REPORT Study performed: 08/13/2020 08:57:56 EXAM: Comprehensive 2D, Doppler, and color-flow Echocardiogram Patient Location: In-Patient Room #: 207 Status: routine BSA: 1.92 HR: 77 bpm BP: 173/86 mmHg Rhythm: NSR Other Information Study Quality: Adequate Risk Factors: Cardiac Risk Factors: HTN Indications Aortic Valve Disease Diabetes CAD Hypertension/HDD 2D Dimensions RVDd: 24.88 mm IVSd: 10.51 (7-11mm) LVOT Diam: 21.81 (18-24mm) LVDd: 48.49 mm PWd: 10.51 (7-11mm) LVDs: 33.98 (25-40mm) Left Atrium: 40.09 (27-40mm) Aortic Root: 29.02 mm LV Single Plane 4CH: 60.42 % LV Single Plane 2CH: 74.21 % Volumes Left Atrial Volume (Systole) [facility] [address] [place] [address] 2 D/M-MODE ECHOCARDIOGRAM Name: SHERYL VALLADARES Room #: 207-P ADM IN .R.#: [id number] Admission: 08/12/20 Attend Phys: Syed Berkowitz, Discharge: Date of : 54 Report #: [id number] Single Plane 4CH: 23.87 mL Single Plane 2CH: 38.03 mL Biplane LA Volume: 33.00 mL LA ESV Index: 17.00 mL/m2 Aortic Valve AoV Peak Balwinder.: 2.66 m/s AO Peak Gr.: 28.21 mmHg LVOT Max P.38 mmHg AO Mean Gr.: 15.90 mmHg LVOT Mean P.38 mmHg AO V2 Mean: 1.87 m/s LVOT Max V: 1.36 m/s AO V2 VTI: 48.73 cm LVOT Mean V: 0.82 m/s GABE (VTI): 1.79 cm2 LVOT V1 VTI: 23.35 cm GABE Vmax: 1.91 cm2 SV (LVOT): 87.14 mL Mitral Valve E/A Ratio: 0.6 MV Decel. Time: 273.30 ms MV E Max Balwinder.: 0.45 m/s MV A Balwinder.: 0.73 m/s MV PHT: 79.26 ms MVA (PHT): 2.37 cm2 IVRT: 83.04 ms Pulmonary Valve PV Peak Balwinder.: 1.04 m/s PV Peak Gr.: 4.35 mmHg Tricuspid Valve TR Peak Balwinder.: 2.88 m/s RAP Estimate: 7.00 mmHg TR Peak Gr.: 33.14 mmHg RVSP: 40.00 mmHg Left Ventricle The left ventricle is normal size. There is normal LV segmental wall motion. Mild concentric left ventricular hypertrophy. Left ventricular systolic function is normal. The left ventricular ejection fraction is within the normal range. LVEF is 55-60%. Transmitral Doppler flow pattern suggests impaired LV relaxation. Right Ventricle The right ventricle is normal size. The right ventricular systolic function is normal. Atria The left atrium size is normal. The right atrium size is normal. Aortic Valve [address] [address] 2 D/M-MODE ECHOCARDIOGRAM Name: SHERYL VALLADARES Room #: 207-P [facility] IN ..#: [id number] Admission: 08/12/20 Attend Phys: Syed Berkowitz, Discharge: Date of : 54 Report #: [id number] The aortic valve is normal in structure. Bioprosthetic aortic valve is present. Mild aortic regurgitation. Highest mean aortic valve gradient is _15_mmHg. Calculated GABE by the continuity equation is 1.8 cm2. Mitral Valve Mild mitral annular calcification. Mild mitral regurgitation. No evidence of mitral valve stenosis. Tricuspid Valve The tricuspid valve is normal in structure. Mild tricuspid regurgitation. PAP 40 mmHg Pulmonic Valve The pulmonary valve is normal in structure. There is no pulmonic valvular regurgitation. Great Vessels The aortic root is normal in size. IVC is normal in size and collapses >50% with inspiration. Pericardium There is no pericardial effusion. There is no pleural effusion. <Conclusion> The left ventricle is normal size. Mild concentric left ventricular hypertrophy. LVEF is 55-60%. The right ventricle is normal size. Bioprosthetic aortic valve is present. Mild aortic regurgitation. Highest mean aortic valve gradient is _15_mmHg. Calculated GABE by the continuity equation is 1.8 cm2. Mild mitral annular calcification. Mild mitral regurgitation. The tricuspid valve is normal in structure. Mild tricuspid regurgitation. PAP 40 mmHg The pulmonary valve is normal in structure. The aortic root is normal in size. There is no pericardial effusion. <ELECTRONICALLY SIGNED> By: Willem Pittman MD 08/13/20 1018 [id number] Willem Pittman MD /INF
[2020-08-13 11:38] VITALS: BP 160/88
--- NOTE | 2020-08-13 14:07 | NUR ---
PT UP AD LO IN ROOM. PT OBSERVED AMBULATING AROUND THE ROOM AND INDICATED NO NEED FOR SKILLED THERAPY SERVICES AT THIS TIME.
--- NOTE | 2020-08-16 22:23 | HC ---
[facility] [place] [address] CONSULTATION Name: SHERYL VALLADARES Room #: 207-P [facility] Maurice Crystal#: [id number] Admission: 08/12/20 Attend Phys: Syed Berkowitz MD Discharge: 08/13/20 Date of : 54 Report #: [id number] THIS REPORT FOR: cc: Sheryl Shepherd James R. DO Khosla, Parveen K. MD ~ DOC #: [id number] Gaurav Moreno MD DATE OF SERVICE: 08/12/2020 HISTORY OF PRESENT ILLNESS: This is a 70-year-old male patient who says that he has some speech difficulty for a few years and then it became worse. He came to the hospital for the possibility of stroke and since then, looks like Speech Therapy has found some difficulty with swallowing and are going to do some more testing. He is not very happy about it. In fact, he is not happy about many other things either. He does not have any ptosis and he said he is feeling much better as far as his speech is concerned. REVIEW OF SYSTEMS: Indicated that he does not have generalized weakness. He does have cardiac problems. He has a history of diabetes and hypertension. He smokes. He has a history of hyperlipidemia. He denies any eye, ENT, respiratory, GI, , musculoskeletal, constitutional, dermatological, hematological, psychiatric, throat, allergic symptom associated with present symptomatology. PAST MEDICAL HISTORY: Negative for any stroke. FAMILY HISTORY: Negative for any early age stroke. SOCIAL HISTORY: He smokes, but he says he does not drink any alcohol. NEUROLOGIC EXAMINATION: He is alert. He is responsive. He is not very happy, main reason he is not happy is that he is getting swallowing evaluation, but his memory is good and so is speech and concentration when I saw him. Cranial nerve examination II-XII was carried out and mostly looks unremarkable. His strength, sensation are unremarkable in spite of his diabetes. The reflexes are diminished. Tone looks symmetrical. No cerebellar sign. I could not look at the patient's fundus. No meningeal sign. No carotid bruit. No thyroid mass. Nicely built individual who was walking normally. No hearing or visual deficit. PHYSICAL EXAMINATION: CARDIAC: Unremarkable. LUNGS: No respiratory difficulty or rhonchi. VITAL SIGNS: Blood pressure is 190/80, pulse is 95, temperature is 97.5. LABORATORY DATA: Indicate a white count of 6.1. He had a CPK done for some [address] [address] CONSULTATION Name: SHERYL VALLADARES Room #: 207-P [facility].#: [id number] Admission: 08/12/20 Attend Phys: Syed Berkowitz MD Discharge: 08/13/20 Date of : 54 Report #: [id number] reason in 2010 that was high and so was sed rate. His TSH in March was normal. He did have an MRI of the brain, MRA of the head and neck and they were unremarkable except for chronic changes. IMPRESSION AND PLAN: history of speech difficulty with question of swallowing difficulty. The only thing MRI shows chronic changes. They usually do not cause these kind of symptoms as the patient is having. The patient needs workup to look for other causes of his speech difficulty. He needs to be evaluated for myasthenia gravis. If myasthenia gravis antibodies are negative, he needs a MuSK antibodies and even he may need further workup to exclude the possibility of myasthenia gravis, especially if he also has swallowing difficulty. This patient has very strong opinion. He does not want evaluation for swallowing even and is pretty unhappy about that. He also needs some basic workup for pulmonary function tests, but he adamantly insists that there is nothing wrong with his lungs and I do not think we can talk him into doing that workup for much workup. MuSK antibodies cannot be sent when this patient is in hospital. Myasthenia markers cannot be sent either until exception is made by the pathologist. We will order it, but it does not come for several days. The only other option will be to give him a trial with Mestinon in the meantime or arrange a single-fiber EMG, which again has to be arranged at some other place, we do not even have it as an outpatient and that will take a while to do that, but he needs that workup and I emphasized that to him. Thank you very much for this referral and if you have any questions, please feel free to contact me. Gaurav Moreno MD PK/EKT <ELECTRONICALLY SIGNED> By: Gaurav Moreno MD 08/16/20 [id number] Gaurav Moreno MD /nt
== END 2020-08-13 11:52 | disposition home or self-care (01) ==
LOC: ER 11:25 → 2N 13:10 → EROBS 13:10 → 2N 13:10
PROVIDERS: Nurse Practitioner; Nurse Practitioner Adult Health; Physician Assistant; ADMIT Internal Medicine; ATTEND Internal Medicine
DX: R13.10 Dysphagia, unspecified (principal); R47.01 Aphasia; E11.9 Type 2 diabetes mellitus without complications; I25.10 Atherosclerotic heart disease of native coronary artery without angina pectoris; E78.00 Pure hypercholesterolemia, unspecified; I10 Essential (primary) hypertension; R47.81 Slurred speech; Z95.1 Presence of aortocoronary bypass graft; I35.0 Nonrheumatic aortic (valve) stenosis; Z88.5 Allergy status to narcotic agent; Z88.8 Allergy status to other drugs, medicaments and biological substances; Z79.82 Long term (current) use of aspirin; Z79.84 Long term (current) use of oral hypoglycemic drugs; Z79.899 Other long term (current) drug therapy
CPT/HCPCS: 10081

== ENCOUNTER → 2020-09-03 | Outpatient (CLI) | payer OTHER ==
[~2020-09-03] VITALS: Ht 175.3 cm; Wt 73.8 kg
[~2020-09-03] MED LIST changes: +METFORMIN HCL500 M3 PO
[2020-09-03 09:47] VITALS: BP 121/70
--- NOTE | 2020-09-03 09:52 | NUR ---
Pain Clinic Assessment: 1. History of Osteoarthritis: CIRILO SHOULDERS CIRILO HIPS History of Rheumatoid Arthritis: Not Applicable 2. Height: 5 ft. 9 in. 175.3 cm. Weight: 162.6 lb. oz. 73.755 kg. Patient's BMI: 24.0 3. Vital Signs: BP: 121/70 Pulse: 57 Resp: 18 Temp: 02 Sat: 97 ECG Mon: 4. Pain Intensity: 4 5. Fall Risk: Dizziness: N Needs help standing or walking: N Fallen in the last 3 months: N Fall risk comments: 6. Patient on Blood Thinner: None 7. History of Hypertension: Y 8. Opioid Therapy greater than 6 weeks: Y Opiate Contract Signed: 09/13/17 9. Risk Assessment Tool Provided: LOW-3 10. Functional Assessment Tool: 11. Recreational Drug Use: Never Drug Type: Tobacco Use: Former Smoker Tobacco Type: Amount or Packs/day: How Many Years: Alcohol Use: No Frequency: Quant:
== END ==
LOC: PAIN 07:03
PROVIDERS: ATTEND Clinical Nurse Specialist Adult Health
DX: M54.5 Low back pain (principal); G89.4 Chronic pain syndrome; E11.40 Type 2 diabetes mellitus with diabetic neuropathy, unspecified; M54.16 Radiculopathy, lumbar region; I10 Essential (primary) hypertension; Z79.891 Long term (current) use of opiate analgesic; Z87.891 Personal history of nicotine dependence; Z79.899 Other long term (current) drug therapy; Z95.2 Presence of prosthetic heart valve; Z88.5 Allergy status to narcotic agent

== ENCOUNTER → 2020-11-03 | Outpatient (CLI) | payer OTHER ==
[~2020-11-03] VITALS: Ht 175.3 cm; Wt 73.2 kg
[2020-11-03 09:37] VITALS: BP 107/67
--- NOTE | 2020-11-03 09:46 | NUR ---
Pain Clinic Assessment: 1. History of Osteoarthritis: CIRILO SHOULDERS CIRILO HIPS History of Rheumatoid Arthritis: Not Applicable 2. Height: 5 ft. 9 in. 175.3 cm. Weight: 161.4 lb. oz. 73.211 kg. Patient's BMI: 23.8 3. Vital Signs: BP: 107/67 Pulse: 56 Resp: 14 Temp: 02 Sat: 98 ECG Mon: 4. Pain Intensity: 3 TO 4 5. Fall Risk: Dizziness: N Needs help standing or walking: N Fallen in the last 3 months: N Fall risk comments: 6. Patient on Blood Thinner: None 7. History of Hypertension: Y 8. Opioid Therapy greater than 6 weeks: Y Opiate Contract Signed: 09/13/17 9. Risk Assessment Tool Provided: LOW-3 10. Functional Assessment Tool: 11. Recreational Drug Use: Never Drug Type: Tobacco Use: Former Smoker Tobacco Type: Amount or Packs/day: How Many Years: Alcohol Use: No Frequency: Quant:
--- NOTE | 2020-11-04 16:15 | HPC ---
[facility] [address] [place] [address] PAIN MANAGEMENT CONSULTATION Name: SHERYL VALLADARES Room #: REG ESTELA Bonilla#: [id number] Admission: 11/03/20 Attend Phys: Chelsie Luz Discharge: Date of : 54 Report #: [id number] THIS REPORT FOR: cc: Sheryl Shepherd James R. DO Hocker, Amanda CNS ~ cc: Sheryl Marinelli DO, N Wayne Brown, MD DATE OF SERVICE: 11/03/2020 CHIEF COMPLAINT: Low back pain, bilateral leg pain. HISTORY OF PRESENT ILLNESS: This is a pleasant 70-year-old gentleman who returns to the clinic today for renewal of his medication. Today, he is reporting his pain at 3-4, located in his low back and bilateral hips and legs. He has had previous surgery and continues to have ongoing discomfort and pain. Today, he reports a pain score of 3-4. He reports that it is worse with standing and lifting. 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 He does find that it does help him with his mood and some of his other aches and pains since he is more active and he feels like it is good to be around people than being at home all day long. He describes his pain as an aching, stabbing, tenderness with some numbness and tingly sensation in his legs due to his diabetes. Overall, he feels like he is doing quite well on his current regimen with no side effects of constipation or daytime somnolence as a result of his medication and he would like to continue them today. ALLERGIES: PREDNISONE AND HYDROMORPHONE. CURRENT LIST OF MEDICATIONS: Morphine, MS Contin 30 mg b.i.d., oxycodone 10/325 q.i.d. p.r.n., Lyrica 150 mg b.i.d., Accupril, potassium, nitroglycerin, metoprolol, Mucinex, aspirin, albuterol, glimepiride, naloxone, and atorvastatin. PATIENT'S PQRS: 1. He has osteoarthritic issues in his shoulders and hips with replacement of his hips in the past. Denies any rheumatoid arthritis. 2. Height is 5 feet 9 inches, weight is 161. BMI is 23. 3. Vital signs 107/67, pulse is 56, respirations 14, oxygen sat is 98%. 4. Pain score is 3-4. 5. Denies dizziness, does not need help walking, has not fallen in the last 3 months. 6. The patient is not on any blood thinners, but does take medicine for hypertension. 7. Opioid therapy is greater than 6 weeks; therefore, an opioid signed contract is on the chart. 8. Risk assessment is low. Functional assessment is . [address] [address] PAIN MANAGEMENT CONSULTATION Name: SHERYL VALLADARES Room #: REG ESTELA Crystal#: [id number] Admission: 11/03/20 Attend Phys: Chelsie Luz Discharge: Date of : 54 Report #: [id number] 9. Recreational drug use, he denies. He is a former smoker and does not drink alcohol. According to the prescription monitoring system, he is due to fill his medications today, filling them in a timely fashion. His morphine mEq is quite high, but we have decreased him over the years. Currently, his MME is 120. He is followed every 2 months in the clinic. There is an opioid drug screen on the chart that is appropriate for his medications and we will recheck that at his next visit. PHYSICAL EXAMINATION: GENERAL: This is alert and orientated well-developed, well-nourished gentleman, who appears his stated age, rating his pain score today at 3-4. He is a good historian. HEENT: Normocephalic, atraumatic. Extraocular eye muscles are intact. He is wearing a mask. His speech is fluent. NECK: Without adenopathy or JVD. MUSCULOSKELETAL: He is without significant scoliosis, or lordosis. He had a slight kyphosis. He has tenderness in the lumbar region of his back that radiates into his hips bilaterally with peripheral neuropathy present in his feet. Lower extremity strength is symmetrical at 5/5. He has a slightly antalgic gait. PLAN: 1. We discussed treatment options with the patient today. At this time, we will continue his medications They have been effective in controlling his pain and we have been able to decrease over the years. He has been stable on his MS Contin 30 mg b.i.d. and Percocet 10/325 up to 4 times a day. Scripts will be sent electronically for today and 4-week released by Dr. James Roman. 2. The patient feels the Lyrica 150 mg twice a day is beneficial in helping with his neuropathy in his feet. He is not due for a refill of that medication today. We will refill at his next visit, but if he finds he does run out before, we will call this medication in. 3. At his next appointment, we will repeat a urine drug screen on this patient. Time spent with the patient in consultation, reviewing recent clinical notes and studies physician reports, physical examination and correlation of physical findings and medical documentation to determine treatment options 14 minutes. Time spent in preparation for appointment review and prescription monitoring reports, reviewing previous records and proposed treatment options, reviewing current medications 5 minutes. Time spent preparing and sending electronic prescriptions with collaborating physician, Dr. James Roman, [facility] [address] [place] [address] PAIN MANAGEMENT CONSULTATION Name: SHERYL VALLADARES Room #: REG ESTELA Crystal#: [id number] Admission: 11/03/20 Attend Phys: Chelsie Luz Discharge: Date of : 54 Report #: [id number] documentation of visit, and plan of treatment 5 minutes. Total time spent 24 minutes. <ELECTRONICALLY SIGNED> By: Chelsie Luz 11/04/20 [id number] [id number] Chelsie Luz /nt
== END ==
LOC: PAIN 08:37
PROVIDERS: ATTEND Clinical Nurse Specialist Adult Health
DX: M19.90 Unspecified osteoarthritis, unspecified site (principal); Z79.891 Long term (current) use of opiate analgesic; Z79.899 Other long term (current) drug therapy; Z88.5 Allergy status to narcotic agent; Z88.8 Allergy status to other drugs, medicaments and biological substances

== ENCOUNTER → 2020-12-29 | Outpatient (CLI) | payer OTHER ==
[~2020-12-29] VITALS: Ht 175.3 cm; Wt 73.5 kg
[2020-12-29 09:07] VITALS: BP 131/71
--- NOTE | 2020-12-29 09:11 | NUR ---
Pain Clinic Assessment: 1. History of Osteoarthritis: CIRILO SHOULDERS CIRILO HIPS History of Rheumatoid Arthritis: Not Applicable 2. Height: 5 ft. 9 in. 175.3 cm. Weight: 162.0 lb. oz. 73.483 kg. Patient's BMI: 23.9 3. Vital Signs: BP: 131/71 Pulse: 64 Resp: 16 Temp: 02 Sat: 96 ECG Mon: 4. Pain Intensity: 7 5. Fall Risk: Dizziness: N Needs help standing or walking: N Fallen in the last 3 months: N Fall risk comments: 6. Patient on Blood Thinner: None 7. History of Hypertension: Y 8. Opioid Therapy greater than 6 weeks: Y Opiate Contract Signed: 09/13/17 9. Risk Assessment Tool Provided: LOW-3 10. Functional Assessment Tool: 11. Recreational Drug Use: Never Drug Type: Tobacco Use: Former Smoker Tobacco Type: Amount or Packs/day: How Many Years: Alcohol Use: No Frequency: Quant:
== END ==
LOC: PAIN 08:52
PROVIDERS: ATTEND Anesthesiology Pain Medicine
DX: G89.29 Other chronic pain (principal); M16.11 Unilateral primary osteoarthritis, right hip; E11.40 Type 2 diabetes mellitus with diabetic neuropathy, unspecified; M96.1 Postlaminectomy syndrome, not elsewhere classified; M54.16 Radiculopathy, lumbar region; I10 Essential (primary) hypertension; Z95.2 Presence of prosthetic heart valve; Z96.641 Presence of right artificial hip joint; Z88.8 Allergy status to other drugs, medicaments and biological substances; Z79.82 Long term (current) use of aspirin; Z79.899 Other long term (current) drug therapy; Z79.84 Long term (current) use of oral hypoglycemic drugs

== ENCOUNTER → 2021-03-02 | Outpatient (CLI) | payer OTHER ==
[~2021-03-02] VITALS: Ht 175.3 cm; Wt 73.3 kg
[2021-03-02 11:12] VITALS: BP 135/78
--- NOTE | 2021-03-02 11:15 | NUR ---
Pain Clinic Assessment: 1. History of Osteoarthritis: CIRILO SHOULDERS CIRILO HIPS History of Rheumatoid Arthritis: Not Applicable 2. Height: 5 ft. 9 in. 175.3 cm. Weight: 161.6 lb. oz. 73.301 kg. Patient's BMI: 23.9 3. Vital Signs: BP: 135/78 Pulse: 68 Resp: 16 Temp: 02 Sat: 99 ECG Mon: 4. Pain Intensity: 4 5. Fall Risk: Dizziness: N Needs help standing or walking: N Fallen in the last 3 months: N Fall risk comments: 6. Patient on Blood Thinner: None 7. History of Hypertension: Y 8. Opioid Therapy greater than 6 weeks: Y Opiate Contract Signed: 09/13/17 9. Risk Assessment Tool Provided: LOW-3 10. Functional Assessment Tool: 11. Recreational Drug Use: Never Drug Type: Tobacco Use: Former Smoker Tobacco Type: Amount or Packs/day: How Many Years: Alcohol Use: No Frequency: Quant:
== END ==
LOC: PAIN 08:06
PROVIDERS: ATTEND Clinical Nurse Specialist Adult Health
DX: G89.29 Other chronic pain (principal); M96.1 Postlaminectomy syndrome, not elsewhere classified; M54.16 Radiculopathy, lumbar region; E11.40 Type 2 diabetes mellitus with diabetic neuropathy, unspecified; Z79.84 Long term (current) use of oral hypoglycemic drugs; Z79.82 Long term (current) use of aspirin; Z88.8 Allergy status to other drugs, medicaments and biological substances; Z79.899 Other long term (current) drug therapy; Z96.649 Presence of unspecified artificial hip joint

== ENCOUNTER → 2021-04-27 | Outpatient (CLI) | payer OTHER ==
[~2021-04-27] VITALS: Ht 175.3 cm; Wt 74.8 kg
[2021-04-27 09:14] VITALS: BP 181/78
--- NOTE | 2021-04-27 09:22 | NUR ---
Pain Clinic Assessment: 1. History of Osteoarthritis: CIRILO SHOULDERS CIRILO HIPS History of Rheumatoid Arthritis: Not Applicable 2. Height: 5 ft. 9 in. 175.3 cm. Weight: 165.0 lb. oz. 74.844 kg. Patient's BMI: 24.4 3. Vital Signs: BP: 181/78 Pulse: 64 Resp: 14 Temp: 02 Sat: 99 ECG Mon: 4. Pain Intensity: 3 5. Fall Risk: Dizziness: N Needs help standing or walking: N Fallen in the last 3 months: N Fall risk comments: 6. Patient on Blood Thinner: None 7. History of Hypertension: Y 8. Opioid Therapy greater than 6 weeks: Y Opiate Contract Signed: 09/13/17 9. Risk Assessment Tool Provided: LOW-3 10. Functional Assessment Tool: 11. Recreational Drug Use: Never Drug Type: Tobacco Use: Current Every Day Smoker Tobacco Type: Cigarettes Amount or Packs/day: 4 How Many Years: Alcohol Use: No Frequency: Quant:
== END ==
LOC: PAIN 06:52
PROVIDERS: ATTEND Clinical Nurse Specialist Adult Health
DX: E11.40 Type 2 diabetes mellitus with diabetic neuropathy, unspecified (principal); M54.16 Radiculopathy, lumbar region; M16.10 Unilateral primary osteoarthritis, unspecified hip; G89.29 Other chronic pain; M54.50 Low back pain, unspecified; Z88.8 Allergy status to other drugs, medicaments and biological substances; Z79.82 Long term (current) use of aspirin; Z79.899 Other long term (current) drug therapy